=== PATIENT | male | born 1990 | race Caucasian/White ===

== ENCOUNTER 2016-07-17 21:54 | Emergency (ER) | payer OTHER ==
[2016-07-17] MEDS ORDERED: Sodium Chloride 0.9% 1000 ML 1,000 ML IV STA (22:40)
--- NOTE | 2016-07-17 22:43 | ERPHSYRPT ---
- History of Present Illness Time Seen by Provider: 07/17/16 22:30 Source: family Exam Limitations: clinical condition Patient Subjective Stated Complaint: reports with c/o anxiety that is growing more frequent over the last few months - denies any stressors in his life at this time - reports that he was sitting quietly after smoking marijuana and began to feel anxious Triage Nursing Assessment: ambulatory to treatment area - steady gait - moves all extremities with equal strength. alert/oriented - anxious affect. skin pwd - no rash/injury. resps easy - non-labored Physician History: PATIENT COMPAIN ANXIETY AND PRINCIPAL STRATEGIST DEPRESSION. HAS BEEN NONCOMPLIANT WITH MEDICATIONS, REFUSED TO TAKE HIS DIABETIC AND HIGH BLOOD PRESSURS MEDICATION FOR MONTHS. PATIENT ADMITS TO FEEL ANXIOUS, HE DENIES SUICIDAL OR HOMOCIDAL IDEATION. Timing/Duration: week(s) Severity of Symptoms-Max: moderate Severity of Symptoms-Current: moderate Context related to: other (UNKNOWN) Associated Symptoms: anxiety Previous symptoms: same symptoms as today Allergies/Adverse Reactions: No Known Drug Allergies Allergy (Unverified 11/09/13 21:19) Hx Tetanus, Diphtheria Vaccination/Date Given: Yes Hx Influenza Vaccination/Date Given: No Hx Pneumococcal Vaccination/Date Given: No Immunizations Up to Date: Yes - Past Medical History Pertinent Past Medical History: Yes Neurological History: No Pertinent History ENT History: No Pertinent History Cardiac History: No Pertinent History Respiratory History: No Pertinent History Endocrine Medical History: Diabetes Type I Musculoskeletal History: No Pertinent History GI Medical History: No Pertinent History History: No Pertinent History Psycho-Social History: No Pertinent History Male Reproductive Disorders: No Pertinent History Other Medical History: PT HAS BEEN DX WITH DIABETES AND THYROID BUT HAS NOT TAKE MEDS FOR YEARS - Past Surgical History Past Surgical History: Yes Neuro Surgical History: No Pertinent History Cardiac: No Pertinent History Gastrointestinal: No Pertinent History Genitourinary: No Pertinent History Musculoskeletal: Orthopedic Surgery Male Surgical History: No Pertinent History Other Surgical History: hip - ears - Social History Smoking Status: Current every day smoker How long have you smoked: 2008 Exposure to second hand smoke: No Drug Use: marijuana Patient Lives Alone: No - Review of Systems Constitutional: No Fever, No Chills Eyes: No Symptoms Ears, Nose, & Throat: No Symptoms Respiratory: No Symptoms, No Cough, No Dyspnea Cardiac: No Symptoms, No Chest Pain, No Edema, No Syncope Abdominal/Gastrointestinal: No Symptoms, No Abdominal Pain, No Nausea, No Vomiting, No Diarrhea Genitourinary Symptoms: No Symptoms, Penile Discharge, No Dysuria Musculoskeletal: No Back Pain, No Neck Pain Skin: No Symptoms, No Rash Neurological: No Dizziness, No Focal Weakness, No Sensory Changes Psychological: No Symptoms Endocrine: No Symptoms All Other Systems: Reviewed and Negative - Nursing Vital Signs Nursing Vital Signs: Initial Vital Signs Pulse Rate 80 Respiratory Rate 18 Blood Pressure 149/74 Pain Intensity 0 - Physical Exam General Appearance: no apparent distress Eyes, Ears, Nose, Throat Exam: normal ENT inspection, moist mucous membranes Neck Exam: normal inspection, non-tender, supple Respiratory Exam: normal breath sounds, lungs clear, No respiratory distress Cardiovascular Exam: regular rate/rhythm, No edema Gastrointestinal/Abdominal Exam: soft, No tenderness, No distention Extremities Exam: normal inspection, normal range of motion, No evidence of injury, No edema Peripheral Pulses: carotid (R): 2+, carotid (L): 2+, femoral (R): 2+, femoral (L ): 2+, dorsalis-pedis (R): 2+, dorsalis-pedis (L): 2+ Current Suicidality: denies suicide plan Neurological Exam: alert, chemical maker II-XII nml as tested, oriented x 3 Behavior/Eye Contact/Speech: alert & cooperative Thoughts/Hallucinations: normal thought pattern Skin Exam: normal color, warm, dry, No rash SpO2: 100 Oxygen Delivery: Room Air Ordered Tests: Active Orders 24 hr Category Date Time Status ACCUCHECK [Accucheck] STAT Care 07/17/16 22:24 Active Pan Shover STAT Care 07/17/16 22:40 Active EKG-ER Only STAT Care 07/17/16 22:40 Active IV Insertion STAT Care 07/17/16 22:52 Active Psychiatric Evaluation STAT Care 07/18/16 00:15 Active CBC W DIFF Stat Lab 07/17/16 23:00 Completed CMP Stat Lab 07/17/16 23:00 Completed ETHYL ALCOHOL Routine Lab 07/17/16 23:00 Completed UA W/ MICROSCOPIC Stat Lab 07/17/16 23:00 Completed Urine Triage Profile Stat Lab 07/17/16 23:00 Completed Medication Summary Discontinued Medications Generic Name Dose Route Start Last Admin Trade Name Freq PRN Reason Stop Dose Admin Sodium Chloride 1,000 mls @ 999 mls/hr 07/17/16 22:40 07/17/16 22:54 Sodium Chloride 0.9% 1000 Ml IV 07/17/16 23:40 999 mls/hr .Q1H1M STA Administration Sodium Chloride Confirm 07/17/16 22:52 Sodium Chloride 0.9% 1000 Ml Administered 07/17/16 22:53 Dose 1,000 mls @ ud .ROUTE .STK-MED ONE Lab/Rad Data: Laboratory Result Diagrams 07/17/16 23:00 07/17/16 23:00 Laboratory Results 07/17/16 07/17/16 07/17/16 Range/Units 23:00 23:00 23:00 WBC (4.0-10.5) K/mm3 RBC (4.1-5.6) M/mm3 Hgb (12.5-18.0) gm/dl Hct (42-50) % MCV (78-100) fl MCH (26-32) pg MCHC (32-36) g/dl RDW (11.5-14.0) % Plt Count (150-450) K/mm3 MPV (6-9.5) fl Gran % (36.0-66.0) % Lymphocytes % (24.0-44.0) % Monocytes % (0.0-12.0) % Eosinophils % (0.00-5.0) % Basophils % (0.0-0.4) % Basophils # (0-0.4) Sodium 135 L (136-145) mEq/L Potassium 3.8 (3.5-5.1) mEq/L Chloride 97 L (98-107) mEq/L Carbon Dioxide 24.9 (21-32) mEq/L Anion Gap 16.8 H (5-15) MEQ/L BUN 10 (9-20) mg/dL Creatinine 0.82 (0.55-1.30) mg/dl Estimated GFR > 60 ML/MIN Glucose 257 H (70-110) MG/DL Calcium 8.9 (8.5-10.1) mg/dL Total Bilirubin 0.5 (0.2-1.0) mg/dL AST 17 (15-37) U/L ALT 40 (12-78) U/L Alkaline Phosphatase 75 (46-116) U/L Serum Total Protein 7.5 (6.4-8.2) gm/dL Albumin 4.0 (3.4-5.0) g/dL Ur Collection Type Urine Color (YELLOW) Urine Appearance (CLEAR) Urine pH (5-6) Ur Specific [place] (1.005-1.025) Urine Protein (Negative) Urine Glucose (UA) (NEGATIVE) mg/dL Urine Ketones (NEGATIVE) Urine Nitrite (NEGATIVE) Urine Bilirubin (NEGATIVE) Urine Urobilinogen (0-1) mg/dL Urine WBC (Auto) (NEGATIVE) Urine RBC (Auto) (0-5) Stuart/ul Urine Microscopic RBC (0-2) /HPF Urine Microscopic WBC (0-5) /HPF Ur Epithelial Cells (FEW) /HPF Urine Bacteria (NEGATIVE) /HPF Urine Mucus (NEGATIVE) /HPF Urine Opiates Level NEG. (NEGATIVE) Ur Methadone NEG. (NEGATIVE) Urine Barbiturates NEG. (NEGATIVE) Ur Phencyclidine (PCP) NEG. (NEGATIVE) Urine Amphetamine NEG. (NEGATIVE) U Benzodiazepine Level NEG. (NEGATIVE) Urine Cocaine NEG. (NEGATIVE) Urine Marijuana (THC) POS. (NEGATIVE) Ethyl Alcohol (0.00-0.01) % Specimen Received 07/17/16 07/17/16 Range/Units 23:00 23:00 WBC 12.6 H (4.0-10.5) K/mm3 RBC 5.49 (4.1-5.6) M/mm3 Hgb 16.6 (12.5-18.0) gm/dl Hct 47.7 (42-50) % MCV 86.9 (78-100) fl MCH 30.2 (26-32) pg MCHC 34.8 (32-36) g/dl RDW 12.4 (11.5-14.0) % Plt Count 245 (150-450) K/mm3 MPV 10.5 H (6-9.5) fl Gran % 62.9 (36.0-66.0) % Lymphocytes % 29.8 (24.0-44.0) % Monocytes % 5.1 (0.0-12.0) % Eosinophils % 2.0 (0.00-5.0) % Basophils % 0.2 (0.0-0.4) % Basophils # 0.03 (0-0.4) Sodium (136-145) mEq/L Potassium (3.5-5.1) mEq/L Chloride (98-107) mEq/L Carbon Dioxide (21-32) mEq/L Anion Gap (5-15) MEQ/L BUN (9-20) mg/dL Creatinine (0.55-1.30) mg/dl Estimated GFR ML/MIN Glucose (70-110) MG/DL Calcium (8.5-10.1) mg/dL Total Bilirubin (0.2-1.0) mg/dL AST (15-37) U/L ALT (12-78) U/L Alkaline Phosphatase (46-116) U/L Serum Total Protein (6.4-8.2) gm/dL Albumin (3.4-5.0) g/dL Ur Collection Type CLEAN CATCH Urine Color STRAW (YELLOW) Urine Appearance CLEAR (CLEAR) Urine pH 6.0 (5-6) Ur Specific [place] 1.025 (1.005-1.025) Urine Protein 100 (Negative) Urine Glucose (UA) 100 (NEGATIVE) mg/dL Urine Ketones SMALL-15 (NEGATIVE) Urine Nitrite NEGATIVE (NEGATIVE) Urine Bilirubin SMALL (NEGATIVE) Urine Urobilinogen 2 (0-1) mg/dL Urine WBC (Auto) NEGATIVE (NEGATIVE) Urine RBC (Auto) TRACE NON-HEM (0-5) Stuart/ul Urine Microscopic RBC 0-2 (0-2) /HPF Urine Microscopic WBC 0-2 (0-5) /HPF Ur Epithelial Cells MODERATE (FEW) /HPF Urine Bacteria FEW (NEGATIVE) /HPF Urine Mucus MODERATE (NEGATIVE) /HPF Urine Opiates Level (NEGATIVE) Ur Methadone (NEGATIVE) Urine Barbiturates (NEGATIVE) Ur Phencyclidine (PCP) (NEGATIVE) Urine Amphetamine (NEGATIVE) U Benzodiazepine Level (NEGATIVE) Urine Cocaine (NEGATIVE) Urine Marijuana (THC) (NEGATIVE) Ethyl Alcohol (0.00-0.01) % Specimen Received 07/17/16:2300 - Progress Progress Note: [id number] 07/18/16 01:01EDWIN JERRY CONSULTED AT 0100 FOR OUTPATIENT EVALUATION. 07/18/16 01:13 Discussed with DrGonzalez: Wayne Counseled pt/family regarding: diagnosis, need for follow-up - Departure Time of Disposition: 01:10 Departure Disposition: Home Clinical Impression: ANXIETY/DEPRESSION, ANXIETY/DEPRESSION Condition: Stable Critical Care Time: No Additional Instructions: LISINOPRIL 10MG DAILY FOR BLOOD PRESSURE. ATARAX 25MG EVERY 6 HOURS NEEDED FOR ANXIETY. FOLLOWUP WITH TAMMY JERRY AT 8AM TODAY FOR EVALUATION. Prescriptions: Hydroxyzine HCl 25 mg [Atarax 25 mg] 25 mg PO Q6H PRN PRN #15 tablet PRN Reason: Anxiety Lisinopril 10 mg [Zestril 10 MG] 10 mg PO DAILY #30 tablet
[2016-07-17] MEDS ORDERED: Sodium Chloride 0.9% 1000 ML 1,000 ML ONE (22:52)
[2016-07-17 23:08] LABS: BASOPHIL % 0.2 % (0.0-0.4); Granulocytes % 62.9 % (36.0-66.0); Lymphocytes % 29.8 % (24.0-44.0); Mean Cell Volume 86.9 fl (78-100); Mean Corpuscular Hemoglobin 30.2 pg (26-32); Mean Platelet Volume 10.5 fl (6-9.5); Monocytes % 5.1 % (0.0-12.0); Platelet Count 245 K/mm3 (150-450); Red Blood Count 5.49 M/mm3 (4.1-5.6); Red Cell Distribution Width 12.4 % (11.5-14.0); White Blood Count 12.6 K/mm3 (4.0-10.5)
[2016-07-17 23:14] LABS: Bacteria FEW /HPF (NEGATIVE); COMPLETE URINE MICROSCOPIC? YES; Collection Type CLEAN CATCH; Epithelial Cells MODERATE /HPF (FEW); Mucus MODERATE /HPF (NEGATIVE); WBC 0-2 /HPF (0-5)
[2016-07-17 23:26] LABS: ALKALINE PHOSPHATASE 75 U/L (46-116); ANION GAP 16.8 MEQ/L (5-15); BILIRUBIN,TOTAL 0.5 mg/dL (0.2-1.0); BLOOD UREA NITROGEN 10 mg/dL (9-20); CHLORIDE 97 mEq/L (98-107); Carbon Dioxide 24.9 mEq/L (21-32); Glucose 257 MG/DL (70-110); Potassium 3.8 mEq/L (3.5-5.1); SGOT/AST 17 U/L (15-37); SGPT/ALT 40 U/L (12-78); SODIUM 135 mEq/L (136-145); Total Protein 7.5 gm/dL (6.4-8.2)
[2016-07-18 00:16] VITALS: PULSE 80
[2016-07-18 01:00] VITALS: O2SAT 100
[2016-07-18] MEDS ORDERED: ATARAX 25 MG ONE (01:23)
[2016-07-18 01:29] VITALS: BP 149/78
== END 2016-07-18 01:29 | disposition home or self-care (01) ==
LOC: ED 21:54
DX: F41.8 Other specified anxiety disorders (principal)
CPT/HCPCS: 36000; 36415; 80053; 80307; 81000; 82962; 85025; 90791; 93005; 93041; 96360; 96361; 99283; G0481; Q3014

== ENCOUNTER 2016-07-22 14:31 | Inpatient (IN) | payer OTHER ==
[2016-07-22 15:03] LABS: Mean Cell Volume 86.4 fl (78-100); Mean Corpuscular Hemoglobin 30.4 pg (26-32); Mean Platelet Volume 10.1 fl (6-9.5); Platelet Count 302 K/mm3 (150-450); Red Blood Count 6.18 M/mm3 (4.1-5.6); Red Cell Distribution Width 12.9 % (11.5-14.0); White Blood Count 16.5 K/mm3 (4.0-10.5)
--- NOTE | 2016-07-22 15:05 | ERPHSYRPT ---
- History of Present Illness Source: patient Exam Limitations: no limitations Patient Subjective Stated Complaint: pt sent over by dr shelley for depression and suicidal thoughts,seen on friday for depression and was given rx, has been taking meds, Triage Nursing Assessment: pt is alert and in no distress, pt has a plan to harm self, stab self car wreck, pt denies any new stress, has been hospitalized for same thing in past Timing/Duration: day(s) (2-3 days) Severity: moderate Modifying Factors: Improves With: nothing Associated Symptoms: nausea (patient becomes nauseous when he is has not been taking his meds), vomiting (pat), No abdominal pain, No shortness of breath, No heartburn, No diaphoresis, No cough, No chills, No chest pain, No fever, No headaches, No loss of appetite, No malaise, No rash, No syncope, No seizure, No weakness Hx Tetanus, Diphtheria Vaccination/Date Given: No Hx Influenza Vaccination/Date Given: No Hx Pneumococcal Vaccination/Date Given: No Immunizations Up to Date: Yes <MANNY NELSON - Last Filed: 07/22/16 19:05> <CHAPARRITA VELASCO - Last Filed: 07/22/16 20:09> - History of Present Illness Time Seen by Provider: 07/22/16 14:53 Physician History: This is a 25-year-old white male with history of high blood pressure depression diabetes he arrives with complaint of suicidal ideation for 2-3 days he states that he has no obvious reasons for his depression he apparently had been seen a week ago for similar thoughts he states he was placed on a blood pressure medicine of some type of depression medicine and a pill for his diabetes he states that he has tried to be compliant but when he gets anxious she gets nauseous and vomits and can take his pills He states he has been not otherwise ill He does state that he has multiple ways which she could harm himself that he could stent stabbed himself or become involved in a automobile accident. Patient does have a history of overdose in the past in 2010 Past medical history includes diabetes depression high blood pressure Social history includes tobacco use and marijuana use (MANNY NELSON) Allergies/Adverse Reactions: No Known Drug Allergies Allergy (Verified 07/22/16 14:41) - Review of Systems Constitutional: No Fever, No Chills Eyes: No Symptoms Ears, Nose, & Throat: No Symptoms Respiratory: No Cough, No Dyspnea Cardiac: No Chest Pain, No Edema, No Syncope Abdominal/Gastrointestinal: Nausea (nausea and vomiting with anxiety), Vomiting , No Abdominal Pain, No Diarrhea, No Constipation, No Hematemesis, No Hematochezia, No Melena, No Dysphagia, No Appetite Changes Genitourinary Symptoms: No Dysuria Musculoskeletal: No Back Pain, No Neck Pain Skin: No Rash Neurological: No Dizziness, No Focal Weakness, No Sensory Changes Psychological: Drug Abuse (patient uses marijuana occasionally), Depression, Suicidal Ideations, No Alcohol Abuse, No Anxiety, No Homicidal Ideations, No Emotional Lability, No Hallucinations, No Memory Loss, No Mood Changes Endocrine: No Symptoms All Other Systems: Reviewed and Negative <MANNY NELSON - Last Filed: 07/22/16 19:05> - Past Medical History Pertinent Past Medical History: Yes Neurological History: No Pertinent History ENT History: No Pertinent History Cardiac History: Hypertension Respiratory History: No Pertinent History Endocrine Medical History: Diabetes Type II Musculoskeletal History: No Pertinent History GI Medical History: No Pertinent History History: No Pertinent History Psycho-Social History: Depression Male Reproductive Disorders: No Pertinent History Other Medical History: PT HAS BEEN DX WITH DIABETES AND THYROID BUT HAS NOT TAKE MEDS FOR YEARS - Past Surgical History Past Surgical History: Yes Neuro Surgical History: No Pertinent History Cardiac: No Pertinent History Gastrointestinal: No Pertinent History Genitourinary: No Pertinent History Musculoskeletal: Orthopedic Surgery Male Surgical History: No Pertinent History Other Surgical History: hip right - Social History Smoking Status: Current some day smoker How long have you smoked: 2008 Exposure to second hand smoke: Yes Drug Use: marijuana Patient Lives Alone: No (mother) <MANNY NELSON - Last Filed: 07/22/16 19:05> - Physical Exam General Appearance: other (well-developed well-nourished white male, flat affect , pleasant and cooperative to exami) Eye Exam: PERRL/EOMI, eyes nml inspection Ears, Nose, Throat Exam: normal ENT inspection, TMs normal, pharynx normal, moist mucous membranes Neck Exam: normal inspection, non-tender, supple, full range of motion Respiratory Exam: normal breath sounds, lungs clear, No respiratory distress Cardiovascular Exam: normal heart sounds, normal peripheral pulses, tachycardia , No murmur Gastrointestinal/Abdomen Exam: soft, normal bowel sounds, No tenderness, No mass Back Exam: normal inspection, normal range of motion, No CVA tenderness, No vertebral tenderness Extremity Exam: normal inspection, normal range of motion, pelvis stable Neurologic Exam: alert, oriented x 3, cooperative, normal mood/affect, nml cerebellar function, nml station & gait, sensation nml, No motor deficits Skin Exam: normal color, warm, dry, No rash Lymphatic Exam: No adenopathy SpO2 Interpretation: normal (97%) SpO2: 97 Oxygen Delivery: Room Air <MANNY NELSON - Last Filed: 07/22/16 19:05> - Course Nursing assessment & vital signs reviewed: Yes EKG Interpreted by Me: RATE (113 bpm), Sinus Tach, NORMAL AXIS, Other (EKG, sinus tachycardia 113 bpm, normal axis, no acute ST or T wave changes ) <MANNY NELSON - Last Filed: 07/22/16 19:05> - Progress Progress: improved <MANNY NELSON - Last Filed: 07/22/16 19:05> - Progress Discussed with : Artemio (OBS - ICU (~ 1999).) <CHAPARRITA VELASCO - Last Filed: 07/22/16 20:09> - Progress Progress Note: 07/22/16 19:03 Patient did have ketones in his urine and increased hemoglobin and hematocrit. Case is discussed with Dr. Shelley patient is stable. Patient was given 2 L of normal saline IV and placed on normal saline 100 mL per hour. Telepsyche has been ordered and is pending. Case will be turned over to Dr. Velasco as it is shift change (MANNY NELSON) 07/22/16 20:[address] VELASCO 1945: PERRL, EOMI, CERUMEN OCCLUSION OF RIGHT EAR, LEFT TM INJECTED, PHARYNX ERYTHEMATOUS, DRY m.m., LUNGS CLEAR, NO CARDIAC RUB, ABDOMINAL B.S. NORMAL, NO ANKLE EDEMA, ALERT & COOPERATIVE, NO TREMORS. (CHAPARRITA VELASCO) - Departure Critical Care Time: No <MANNY NELSON - Last Filed: 07/22/16 19:05> - Departure Time of Disposition: 20:09 Departure Disposition: Observation Critical Care Time: No <CHAPARRITA VELASCO - Last Filed: 07/22/16 20:09> - Departure Clinical Impression: Suicidal ideation, Dehydration, LOM, PHARYNGITIS, HTN, DM, DEPRESSION Condition: Fair Referrals: GHAZALA SHELLEY MD [Primary Care Provider] -
[2016-07-22] MEDS ORDERED: Sodium Chloride 0.9% 1000 ML 1,000 ML IV STA ×3 (15:10→20:11)
[2016-07-22] MEDS ORDERED: Sodium Chloride 0.9% 1000 ML 1,000 ML ONE ×4 (15:11→20:23)
[2016-07-22 15:39] LABS: Bacteria FEW /HPF (NEGATIVE); COMPLETE URINE MICROSCOPIC? YES; Collection Type VOID; Epithelial Cells RARE /HPF (FEW); WBC 0-2 /HPF (0-5)
[2016-07-22 15:43] LABS: ALBUMIN 4.6 g/dL (3.4-5.0); ALKALINE PHOSPHATASE 94 U/L (46-116); ANION GAP 28.2 MEQ/L (5-15); BILIRUBIN,TOTAL 0.8 mg/dL (0.2-1.0); BLOOD UREA NITROGEN 14 mg/dL (9-20); CHLORIDE 94 mEq/L (98-107); Glucose 145 MG/DL (70-110); Potassium 4.3 mEq/L (3.5-5.1); SGOT/AST 24 U/L (15-37); SGPT/ALT 36 U/L (12-78); SODIUM 131 mEq/L (136-145); Total Protein 9.1 gm/dL (6.4-8.2)
[2016-07-22 15:56] LABS: Carbon Dioxide 13.8 mEq/L (21-32)
[2016-07-22 15:57] LABS: ACETAMINOPHEN < 2.0 ug/ml (10-30)
[2016-07-22 16:02] LABS: Eosinophil 2 % (0.00-3.0); Platelet Estimate NORMAL (NORMAL); Total Cells Counted 100
[2016-07-22] MEDS ORDERED: Sodium Chloride 0.9% 1000 ML 1,000 ML IV SCH (17:15)
[2016-07-22] MEDS ORDERED: Zithromax 250 MG TABLET PO ONE (19:51)
[2016-07-22] MEDS ORDERED: Zithromax 250 MG TABLET ONE (19:59)
[2016-07-22] MEDS ORDERED: Phenergan 25 MG INJ IV PRN (21:03)
[2016-07-22] MEDS ORDERED: NovoLOG Insulin SQ PRN (21:03)
[2016-07-22] MEDS: Sodium Chloride 0.9% 1000 ML 1,000 ML IV SCH (21:05)
[2016-07-22] MEDS ORDERED: MAALOX ES 30 ML UNIT DOSE PO PRN (22:11)
[2016-07-22] MEDS ORDERED: Ambien 10 MG ONE (22:13)
[2016-07-22] MEDS ORDERED: Ambien 10 MG PO PRN (22:17)
[2016-07-23 05:25] VITALS: BP 147/89; PULSE 73; O2SAT 96
[2016-07-23 06:02] LABS: ALBUMIN 3.6 g/dL (3.4-5.0); ALKALINE PHOSPHATASE 77 U/L (46-116); ANION GAP 14.6 MEQ/L (5-15); BILIRUBIN,TOTAL 0.5 mg/dL (0.2-1.0); BLOOD UREA NITROGEN 17 mg/dL (9-20); CHLORIDE 103 mEq/L (98-107); Carbon Dioxide 23.6 mEq/L (21-32); Glucose 122 MG/DL (70-110); Potassium 4.3 mEq/L (3.5-5.1); SGOT/AST 18 U/L (15-37); SGPT/ALT 28 U/L (12-78); SODIUM 137 mEq/L (136-145); Total Protein 7.2 gm/dL (6.4-8.2)
[2016-07-23] MEDS: Sodium Chloride 0.9% 1000 ML 1,000 ML IV SCH (06:19)
--- NOTE | 2016-07-23 08:04 | PCM.SSS ---
History of Present Illness - Chief Complaint Chief Complaint: Suicidial Ideation, Dehydration History of Present Illness: is a 25 year old male who presented to the ER yesterday evening, of note his chief complaint and history relayed to me is quite different than the reports I received from both ER physicians yesterday. He had nausea, vomiting and diarrhea that began 2 days prior to arrival, had eaten and drank very little over the weekend. He has had suicidal ideation at times over the last 2 months with no specific plans, he feels safe with himself at home at this time. He has an appointment at [facility] for depression, was started on lexapro in the office less than a week ago by me. He gets anxious and vomits, has had very little sleep in the last weeks, self-medicates with marijuana to calm his nerves. - Review of Systems Constitutional: No Fever, No Chills Respiratory: No Cough, No Short Of Breath Cardiac: No Chest Pain, No Edema, No Syncope Abdominal/Gastrointestinal: Nausea, Vomiting, Diarrhea Genitourinary Symptoms: No Dysuria Psychological: Drug Abuse, Depression, Suicidal Ideations, No Alcohol Abuse, No Homicidal Ideations All Other Systems: Reviewed and Negative Medications & Allergies Home Medications: Home Medication List Azithromycin 250 mg [Zithromax 250 MG TABLET] 250 mg PO DAILY #4 tablet [Rx] Canagliflozin/Metformin HCl [Invokamet 150-500 mg Tablet] 1 each PO BID [History Confirmed 07/23/16] Escitalopram Oxalate [Lexapro] 10 mg PO DAILY 07/23/16 [History Confirmed ] Lisinopril 10 mg [Zestril 10 MG] 10 mg PO DAILY 07/23/16 [History Confirmed 07/23/16] Allergies/Adverse Reactions: Allergies Allergy/AdvReac Type Severity Reaction Status Date / Time No Known Drug Allergies Allergy Verified 07/22/16 14:41 - Past Medical History Past Medical History: Yes Neurological History: No Pertinent History ENT History: No Pertinent History Cardiac History: Hypertension Respiratory History: Pneumonia Endocrine Medical History: Diabetes Type II Musculoskelatal History: No Pertinent History GI Medical History: No Pertinent History History: No Pertinent History Pyscho-Social History: Anxiety, Depression Male Reproductive Disorders: No Pertinent History Comment: PT HAS BEEN DX WITH DIABETES AND THYROID BUT HAS NOT TAKE MEDS FOR YEARS - Past Surgical History Past Surgical History: Yes Neuro Surgical History: No Pertinent History Cardiac History: No Pertinent History GI Surgical History: No Pertinent History Genitourinary Surgical Hx: No Pertinent History Musculskeletal Surgical Hx: Orthopedic Surgery Male Surgical History: No Pertinent History Other Surgical History: hip right - bone slip- pin placed. tubes placed in ears years ago, now out - Social History Smoking Status: Current every day smoker How long have you smoked: 7 Exposure to second hand smoke: Yes Alcohol: None Drug Use: marijuana - Physical Exam Vital Signs: Vital Signs - 24 hr Temp Pulse Resp BP BP Pulse Ox 07/23/16 05:20 97.4 F 73 16 147/89 96 07/22/16 23:50 97.6 F 100 H 20 157/82 97 07/22/16 21:07 97.3 F 75 18 167/87 98 07/22/16 20:29 84 18 156/71 98 07/22/16 20:06 80 18 138/68 98 07/22/16 19:05 97 07/22/16 17:06 76 18 141/75 07/22/16 15:52 80 16 133/80 97 07/22/16 15:25 98 H 18 132/84 07/22/16 15:20 91 H 16 134/71 07/22/16 14:39 97.4 F 122 H 18 165/110 97 General Appearance: no apparent distress, alert Neck Exam: normal inspection, non-tender, supple, full range of motion Respiratory Exam: normal breath sounds, lungs clear, No respiratory distress Cardiovascular Exam: regular rate/rhythm, normal heart sounds, normal peripheral pulses Gastrointestinal/Abdomen Exam: soft, normal bowel sounds, No tenderness, No mass Extremity Exam: normal inspection, normal range of motion, pelvis stable Results - Labs Lab/Micro Results: Accuchecks Date 07/23/16 Date 07/22/16 Time 22:08 Accucheck Value: 197 Lab Results-Last 24 Hours 07/23/16 07/23/16 07/23/16 Range/Units 05:00 05:36 05:36 Sodium 137 (136-145) mEq/L Potassium 4.3 (3.5-5.1) mEq/L Chloride 103 (98-107) mEq/L Carbon Dioxide 23.6 (21-32) mEq/L Anion Gap 14.6 (5-15) MEQ/L BUN 17 (9-20) mg/dL Creatinine 0.95 (0.55-1.30) mg/dl Estimated GFR > 60 ML/MIN Glucose 122 H (70-110) MG/DL Hemoglobin A1c 10.0 H (4.5-6.2) Calcium 8.2 L (8.5-10.1) mg/dL Total Bilirubin 0.5 (0.2-1.0) mg/dL AST 18 (15-37) U/L ALT 28 (12-78) U/L Alkaline Phosphatase 77 (46-116) U/L Serum Total Protein 7.2 (6.4-8.2) gm/dL Albumin 3.6 (3.4-5.0) g/dL Thyroxine (T4) 6.8 (4.7-13.3) UG/DL TSH 3rd Generation 3.624 (0.358-3.740) mIU/L Accuchecks Date 07/23/16 Date 07/22/16 Time 22:08 Accucheck Value: 197 Assessment/Plan (1) Viral gastroenteritis Current Visit: Yes Status: Acute Assessment & Plan: appears to be resolved, bicarb is normal today. he is no longer vomiting nor having diarrhea Code(s): A08.4 - VIRAL INTESTINAL INFECTION, UNSPECIFIED (2) Dehydration Current Visit: Yes Status: Acute Assessment & Plan: volume has been replaced Code(s): E86.0 - DEHYDRATION (3) Suicidal ideation Current Visit: Yes Status: Acute Assessment & Plan: currently has no suicidal thoughts, has a longstanding history of depression but is noncompliant with meds for diabetes in the past and was lost to followup. He reassures me that he is safe and has no intent to harm himself, wants to f/u with [facility] today and seems to pose no immediate threat to himself or others in my opinion so I do not feel ED is warranted and he refused transfer to inpatient psych unit last night from ER. Code(s): R45.851 - SUICIDAL IDEATIONS (4) Insomnia Current Visit: Yes Status: Acute Code(s): G47.00 - INSOMNIA, UNSPECIFIED Hospital Summary - Vitals & Intake/Output Vital Signs: Vital Signs Temperature 97.4 F 07/23/16 05:20 Pulse Rate 73 07/23/16 05:20 Respiratory Rate 16 07/23/16 05:20 Blood Pressure 147/89 07/23/16 05:20 O2 Sat by Pulse Oximetry 96 07/23/16 05:20 Intake & Output: Intake & Output 07/20/16 07/21/16 07/22/16 07/23/16 11:59 11:59 11:59 11:59 Intake Total 3170 Balance 3170 Weight 119.437 kg - Lab Result Diagrams: 07/22/16 15:01 07/23/16 05:36 Lab Results-Last 24 Hrs: Accuchecks Date 07/23/16 Date 07/22/16 Time 22:08 Accucheck Value: 197 Lab Results-Last 24 Hours 07/23/16 07/23/16 07/23/16 Range/Units 05:00 05:36 05:36 Sodium 137 (136-145) mEq/L Potassium 4.3 (3.5-5.1) mEq/L Chloride 103 (98-107) mEq/L Carbon Dioxide 23.6 (21-32) mEq/L Anion Gap 14.6 (5-15) MEQ/L BUN 17 (9-20) mg/dL Creatinine 0.95 (0.55-1.30) mg/dl Estimated GFR > 60 ML/MIN Glucose 122 H (70-110) MG/DL Hemoglobin A1c 10.0 H (4.5-6.2) Calcium 8.2 L (8.5-10.1) mg/dL Total Bilirubin 0.5 (0.2-1.0) mg/dL AST 18 (15-37) U/L ALT 28 (12-78) U/L Alkaline Phosphatase 77 (46-116) U/L Serum Total Protein 7.2 (6.4-8.2) gm/dL Albumin 3.6 (3.4-5.0) g/dL Thyroxine (T4) 6.8 (4.7-13.3) UG/DL TSH 3rd Generation 3.624 (0.358-3.740) mIU/L Micro Results-Entire Visit: Accuchecks Date 07/23/1607/22/16 Time 22:08 Accucheck Value: 197 - Procedures and Test Procedures and Tests throughout Hospitalization: Therapy Orders & Screens 07/23/16 02:47 Smoking Cessation Education ONCE Comment: Diagnosis: Suicidial Ideation, Dehydration Smoking Status: Current every day smoker How long have you smoked: 7 Have you smoked in the past 12 months: Yes Approximately how many cigarettes per day: 1 pack Do you dip or chew tobacco: No - Discharge Disposition: Home, Self-Care Condition: Stable Prescriptions: Azithromycin 250 mg [Zithromax 250 MG TABLET] 250 mg PO DAILY #4 tablet Medications: Home Medications Canagliflozin/Metformin HCl [Invokamet 150-500 mg Tablet] 1 each PO BID [Confirmed 07/23/16] Escitalopram Oxalate [Lexapro] 10 mg PO DAILY 07/23/16 [Confirmed 07/23/16] Lisinopril 10 mg [Zestril 10 MG] 10 mg PO DAILY 07/23/16 [Confirmed ] Active Inpatient Medications Al Hydrox/Mg Hydrox/Simethicone (Maalox Es 30 Ml Unit Dose) 30 ml PO Q2H PRN PRN PRN Reason: INDIGESTION Stop: 08/21/16 22:10 Azithromycin (Zithromax 250 Mg Tablet) 250 mg PO DAILY ZEB Stop: 08/22/16 09:59 Sodium Chloride (Sodium Chloride 0.9% 1000 Ml) 1,000 mls @ 100 mls/hr IV .Q10H ZEB Stop: 08/21/16 21:02 Last Admin: 07/22/16 21:05 Dose: Not Given Insulin Aspart (Novolog Insulin) 0 unit SQ UD PRN PRN Reason: HYPERGLYCEMIA Stop: 08/21/16 21:02 Promethazine HCl (Phenergan 25 Mg Inj) 12.5 mg IV Q2H PRN PRN PRN Reason: NAUSEA/VOMITING Stop: 08/21/16 21:02 Last Admin: 07/23/16 00:55 Dose: 12.5 mg Zolpidem Tartrate (Ambien 10 Mg) 10 mg PO HS PRN PRN PRN Reason: INSOMNIA Stop: 08/21/16 22:16 Last Admin: 07/22/16 22:22 Dose: 10 mg Additional Instructions: f/u with Frank today as scheduled, see Dr Luna in 1 week and we can discuss a script for insomnia (want to get Frank recommendation first today). resume home meds and take zithromax x 4 more days Follow up with: GHAZALA LUNA MD [Primary Care Provider] -
[2016-07-23] MEDS ORDERED: Zithromax 250 MG TABLET PO SCH (10:00)
== END 2016-07-23 08:20 | disposition home or self-care (01) | DRG 392 ==
LOC: ED 14:31 → ICU 20:56
PROVIDERS: ADMIT Family Medicine; ATTEND Family Medicine
DX: A08.4 Viral intestinal infection, unspecified (principal); R45.851 Suicidal ideations; E86.0 Dehydration; G47.00 Insomnia, unspecified; I10 Essential (primary) hypertension; E11.9 Type 2 diabetes mellitus without complications; E07.9 Disorder of thyroid, unspecified; F32.9 Major depressive disorder, single episode, unspecified; F12.980 Cannabis use, unspecified with anxiety disorder; Z72.0 Tobacco use
CPT/HCPCS: 36000; 36415; 80053; 80307; 80320; 81000; 82962; 83036; 83986; 84436; 84443; 85025; 90791; 93005; 93041; 96360; 96361; 99284; G0479; G0481; J2550; Q3014

== ENCOUNTER 2017-03-11 11:17 | Inpatient (IN) | payer OTHER ==
[2017-03-11] MEDS ORDERED: Zofran 4 MG/2 ML VIAL IV ONE (11:35)
[2017-03-11] MEDS ORDERED: MORPHINE SULFATE 10 MG/ML IV ONE (11:35)
[2017-03-11] MEDS ORDERED: Vancomycin 1GM/ Ns 250ML*** 1 GM/250 ML IVPB IV ONE (11:37)
[2017-03-11] MEDS ORDERED: Sodium Chloride 0.9% 1000 ML 1,000 ML IV SCH (11:45)
--- NOTE | 2017-03-11 11:46 | ERPHSYRPT ---
- History of Present Illness Time Seen by Provider: 03/11/17 11:37 Source: patient Exam Limitations: no limitations Patient Subjective Stated Complaint: PT REPORTS ABSESS TO INNER LEFT THIGH- DENIES DRAINAGE-UNSURE OF FEVER Triage Nursing Assessment: PT PINK WARM ET DRY-LARGE AMOUNT OF SWELLING REDNESS NOTED TO GROIN/UPPER THIGH OF LEFT LEG Physician History: 26 year old male reports to the emergency department complaining of painful, swollen and red area to left upper/medial thigh region. Very painful, has felt feverish, pain and swelling have worsened over the last week. has not had any drainage from the area, no difficulty with urination or with bowel movements. Allergies/Adverse Reactions: No Known Drug Allergies Allergy (Verified 03/11/17 11:23) Home Medications: No Reportable Medications [No Reported Medications] 03/11/17 [History] Hx Tetanus, Diphtheria Vaccination/Date Given: No Hx Influenza Vaccination/Date Given: No Hx Pneumococcal Vaccination/Date Given: No Immunizations Up to Date: Yes - Review of Systems Constitutional: Fever, Chills Respiratory: No Cough, No Dyspnea Cardiac: No Chest Pain, No Edema, No Syncope Abdominal/Gastrointestinal: No Abdominal Pain, No Nausea, No Vomiting, No Diarrhea Skin: Cellulitis, Induration Neurological: No Dizziness, No Focal Weakness, No Sensory Changes All Other Systems: Reviewed and Negative - Past Medical History Pertinent Past Medical History: No Neurological History: No Pertinent History ENT History: No Pertinent History Cardiac History: Hypertension Respiratory History: Pneumonia Endocrine Medical History: Diabetes Type II Musculoskeletal History: No Pertinent History GI Medical History: No Pertinent History History: No Pertinent History Psycho-Social History: Anxiety, Depression Male Reproductive Disorders: No Pertinent History Other Medical History: PT HAS BEEN DX WITH DIABETES AND THYROID BUT HAS NOT TAKE MEDS FOR YEARS - Past Surgical History Past Surgical History: Yes Neuro Surgical History: No Pertinent History Cardiac: No Pertinent History Gastrointestinal: No Pertinent History Genitourinary: No Pertinent History Musculoskeletal: Orthopedic Surgery Male Surgical History: No Pertinent History Other Surgical History: hip right - bone slip- pin placed. tubes placed in ears years ago, now out - Social History Smoking Status: Current every day smoker How long have you smoked: YRS Exposure to second hand smoke: Yes Drug Use: none Patient Lives Alone: No - Nursing Vital Signs Nursing Vital Signs: Initial Vital Signs Temperature 99.1 F 03/11/17 11:20 Pulse Rate 110 H 03/11/17 11:20 Respiratory Rate 20 03/11/17 11:20 Blood Pressure 145/85 03/11/17 11:20 O2 Sat by Pulse Oximetry 96 03/11/17 11:20 Pain Scale Pain Intensity 10 - Physical Exam General Appearance: no apparent distress, alert Eye Exam: PERRL/EOMI, eyes nml inspection Ears, Nose, Throat Exam: normal ENT inspection, pharynx normal, moist mucous membranes Neck Exam: normal inspection, non-tender, supple, full range of motion Respiratory Exam: normal breath sounds, lungs clear, No respiratory distress Cardiovascular Exam: regular rate/rhythm, normal heart sounds Gastrointestinal/Abdomen Exam: soft, mass, No tenderness Extremity Exam: other (large 8cm area of induration with mild central fluctuance to left medial upper thigh with induration extending to left buttock , surrounding warmth and erythema) Neurologic Exam: alert, oriented x 3, cooperative, normal mood/affect, sensation nml, No motor deficits SpO2: 96 Oxygen Delivery: Room Air Ordered Tests: Active Orders 24 hr Category Date Time Status IV Insertion STAT Care 03/11/17 11:35 Active BLOOD CULTURE Stat Lab 03/11/17 11:48 Ordered CBC W DIFF Stat Lab 03/11/17 11:48 Completed CMP Stat Lab 03/11/17 11:48 Completed Lactic Acid Stat Lab 03/11/17 11:55 Completed Medication Summary Generic Name Dose Route Start Last Admin Trade Name Freq PRN Reason Stop Dose Admin Sodium Chloride 1,000 mls @ 100 mls/hr 03/11/17 11:45 03/11/17 12:17 Sodium Chloride 0.9% 1000 Ml IV 04/10/17 11:44 100 mls/hr .Q10H ZEB Administration Vancomycin HCl 1 gm in 250 mls @ 167 mls/hr 03/11/17 11:37 03/11/17 12:21 Vancomycin 1gm/ Ns 250ml IV 03/11/17 13:06 167 mls/hr STAT ONE Administration Discontinued Medications Generic Name Dose Route Start Last Admin Trade Name Freq PRN Reason Stop Dose Admin Vancomycin HCl Confirm 03/11/17 12:00 Vancomycin 1gm/ Ns 250ml Administered 03/11/17 12:01 Dose 250 mls @ ud IV .STK-MED ONE Morphine Sulfate 6 mg 03/11/17 11:35 03/11/17 12:21 Morphine Sulfate 10 Mg/Ml IV 03/11/17 11:36 6 mg STAT ONE Administration Morphine Sulfate Confirm 03/11/17 11:58 Morphine Sulfate 10 Mg/Ml Administered 03/11/17 11:59 Dose 10 mg .ROUTE .STK-MED ONE Ondansetron HCl 4 mg 03/11/17 11:35 03/11/17 12:16 Zofran 4 Mg/2 Ml Vial IV 03/11/17 11:36 4 mg STAT ONE Administration Ondansetron HCl Confirm 03/11/17 11:59 Zofran 4 Mg/2 Ml Vial Administered 03/11/17 12:00 Dose 4 mg .ROUTE .STK-MED ONE Lab/Rad Data: Laboratory Result Diagrams 03/11/17 11:48 03/11/17 11:48 Laboratory Results 03/11/17 03/11/17 03/11/17 Range/Units Unknown 11:55 11:48 WBC (4.0-10.5) K/mm3 RBC (4.1-5.6) M/mm3 Hgb (12.5-18.0) gm/dl Hct (42-50) % MCV (78-100) fl MCH (26-32) pg MCHC (32-36) g/dl RDW (11.5-14.0) % Plt Count (150-450) K/mm3 MPV (6-9.5) fl Gran % (36.0-66.0) % Lymphocytes % (24.0-44.0) % Monocytes % (0.0-12.0) % Eosinophils % (0.00-5.0) % Basophils % (0.0-0.4) % Basophils # (0-0.4) Sodium 130 L (136-145) mEq/L Potassium 4.4 (3.5-5.1) mEq/L Chloride 95 L (98-107) mEq/L Carbon Dioxide 22.5 (21-32) mEq/L Anion Gap 17.1 H (5-15) MEQ/L BUN 8 L (9-20) mg/dL Creatinine 0.90 (0.55-1.30) mg/dl Estimated GFR > 60 ML/MIN Glucose 332 H (70-110) MG/DL Hemoglobin A1c 4.9 (4.5-6.2) Lactic Acid 1.4 (0.4-2.0) Calcium 9.0 (8.5-10.1) mg/dL Total Bilirubin 1.00 (0.2-1.0) mg/dL AST 12 L (15-37) U/L ALT 19 (12-78) U/L Alkaline Phosphatase 78 (46-116) U/L Serum Total Protein 7.6 (6.4-8.2) gm/dL Albumin 3.2 L (3.4-5.0) g/dL 03/11/17 Range/Units 11:48 WBC 15.8 H (4.0-10.5) K/mm3 RBC 4.89 (4.1-5.6) M/mm3 Hgb 15.2 (12.5-18.0) gm/dl Hct 43.3 (42-50) % MCV 88.5 (78-100) fl MCH 31.1 (26-32) pg MCHC 35.1 (32-36) g/dl RDW 12.0 (11.5-14.0) % Plt Count 193 (150-450) K/mm3 MPV 10.4 H (6-9.5) fl Gran % 81.4 H (36.0-66.0) % Lymphocytes % 8.8 L (24.0-44.0) % Monocytes % 9.3 (0.0-12.0) % Eosinophils % 0.4 (0.00-5.0) % Basophils % 0.1 (0.0-0.4) % Basophils # 0.02 (0-0.4) Sodium (136-145) mEq/L Potassium (3.5-5.1) mEq/L Chloride (98-107) mEq/L Carbon Dioxide (21-32) mEq/L Anion Gap (5-15) MEQ/L BUN (9-20) mg/dL Creatinine (0.55-1.30) mg/dl Estimated GFR ML/MIN Glucose (70-110) MG/DL Hemoglobin A1c (4.5-6.2) Lactic Acid (0.4-2.0) Calcium (8.5-10.1) mg/dL Total Bilirubin (0.2-1.0) mg/dL AST (15-37) U/L ALT (12-78) U/L Alkaline Phosphatase (46-116) U/L Serum Total Protein (6.4-8.2) gm/dL Albumin (3.4-5.0) g/dL - Progress Progress Note: 03/11/17 12:58 patient rechecked and improved, will admit for IV abx and surgery consult. will keep NPO. spoke with office and consult will be relayed to Dr Cunningham who is weatherization field technician at this time for surgery. - Departure Time of Disposition: 12:59 Departure Disposition: Observation Clinical Impression: Abscess of left thigh, Cellulitis of buttock, left Condition: Stable Critical Care Time: No Referrals: GHAZALA LNUA MD [Primary Care Provider] -
[2017-03-11 11:53] LABS: BASOPHIL % 0.1 % (0.0-0.4); Eosinophil % 0.4 % (0.00-5.0); Granulocytes % 81.4 % (36.0-66.0); Lymphocytes % 8.8 % (24.0-44.0); Mean Cell Volume 88.5 fl (78-100); Mean Corpuscular Hemoglobin 31.1 pg (26-32); Mean Platelet Volume 10.4 fl (6-9.5); Monocytes % 9.3 % (0.0-12.0); Platelet Count 193 K/mm3 (150-450); Red Blood Count 4.89 M/mm3 (4.1-5.6); White Blood Count 15.8 K/mm3 (4.0-10.5)
[2017-03-11] MEDS ORDERED: MORPHINE SULFATE 10 MG/ML ONE (11:58)
[2017-03-11] MEDS ORDERED: Zofran 4 MG/2 ML VIAL ONE (11:59)
[2017-03-11] MEDS ORDERED: Vancomycin 1GM/ Ns 250ML*** 250 ML IV ONE (12:00)
[2017-03-11 12:22] LABS: ALBUMIN 3.2 g/dL (3.4-5.0); ALKALINE PHOSPHATASE 78 U/L (46-116); ANION GAP 17.1 MEQ/L (5-15); BLOOD UREA NITROGEN 8 mg/dL (9-20); CHLORIDE 95 mEq/L (98-107); Carbon Dioxide 22.5 mEq/L (21-32); Glucose 332 MG/DL (70-110); Potassium 4.4 mEq/L (3.5-5.1); SGOT/AST 12 U/L (15-37); SGPT/ALT 19 U/L (12-78); SODIUM 130 mEq/L (136-145); Total Protein 7.6 gm/dL (6.4-8.2)
[2017-03-11] MEDS ORDERED: MORPHINE SULFATE 4 MG INJ IV PRN (13:55)
[2017-03-11] MEDS ORDERED: PHARMACY DOSING REQUIRED: VANCOMYCIN IV ONE (13:55)
[2017-03-11] MEDS ORDERED: Zofran 4 MG/2 ML VIAL IV PRN (13:55)
--- NOTE | 2017-03-11 15:10 | PCM.HP ---
History of Present Illness - Chief Complaint Chief Complaint: ABSCESS L UPPER GROIN History of Present Illness: is a 26 year old male who presented to the ER today with complaints of a large red, painful area to left medial upper thigh. He has had subjective fever for the last day or two, has increased in size and become more painful. He has a history of type 2 diabetes and depression. - Review of Systems Constitutional: Fever, Chills Ears, Nose, & Throat: No Symptoms Respiratory: No Cough, No Short Of Breath Cardiac: No Chest Pain, No Edema, No Syncope Abdominal/Gastrointestinal: No Abdominal Pain, No Nausea, No Vomiting, No Diarrhea Skin: Cellulitis, Induration Neurological: No Dizziness, No Focal Weakness, No Sensory Changes Psychological: No Symptoms All Other Systems: Reviewed and Negative Medications & Allergies Home Medications: Home Medication List No Reportable Medications [No Reported Medications] 03/11/17 [History Confirmed 03/11/17] Allergies/Adverse Reactions: Allergies Allergy/AdvReac Type Severity Reaction Status Date / Time No Known Drug Allergies Allergy Verified 03/11/17 11:23 - Past Medical History Past Medical History: No Neurological History: No Pertinent History ENT History: No Pertinent History Cardiac History: Hypertension Respiratory History: Pneumonia Endocrine Medical History: Diabetes Type II Musculoskelatal History: No Pertinent History GI Medical History: No Pertinent History History: No Pertinent History Pyscho-Social History: Anxiety, Depression Male Reproductive Disorders: No Pertinent History Comment: PT HAS BEEN DX WITH DIABETES AND THYROID BUT HAS NOT TAKE MEDS FOR YEARS - Past Surgical History Past Surgical History: Yes Neuro Surgical History: No Pertinent History Cardiac History: No Pertinent History GI Surgical History: No Pertinent History Genitourinary Surgical Hx: No Pertinent History Musculskeletal Surgical Hx: Orthopedic Surgery Male Surgical History: No Pertinent History Other Surgical History: hip right - bone slip- pin placed. tubes placed in ears years ago, now out - Social History Smoking Status: Current every day smoker How long have you smoked: 8 YEARS Exposure to second hand smoke: Yes Alcohol: Rarely Drug Use: none - Physical Exam Vital Signs: Vital Signs - 24 hr Temp Pulse Resp BP Pulse Ox 03/11/17 13:56 98.5 F 111 H 24 175/82 93 L 03/11/17 13:00 96 03/11/17 12:57 100 H 20 169/84 95 03/11/17 12:23 118 H 20 184/100 94 L 03/11/17 11:20 99.1 F 110 H 20 145/85 96 General Appearance: no apparent distress, alert Respiratory Exam: normal breath sounds, lungs clear, No respiratory distress Cardiovascular Exam: regular rate/rhythm, normal heart sounds, normal peripheral pulses Gastrointestinal/Abdomen Exam: soft, normal bowel sounds, No tenderness, No mass Extremity Exam: other (large indurated, erythematous and exquisistely tender area left medial upper thigh extending to buttocks. surrounding erythema and induration. roughly 8cm length) Results - Labs Lab/Micro Results: Lab Results-Last 24 Hours 03/11/17 Range/Units Unknown Hemoglobin A1c 4.9 (4.5-6.2) Assessment/Plan (1) Abscess of left thigh Current Visit: Yes Status: Acute Assessment & Plan: on IV vanc, IV fluids pain control and anti-emetics. surgery consult requested, will likely require surgical incision and drainage. Code(s): L02.416 - CUTANEOUS ABSCESS OF LEFT LOWER LIMB (2) Cellulitis of buttock, left Current Visit: Yes Status: Acute Code(s): L03.317 - CELLULITIS OF BUTTOCK (3) Diabetes type 2, controlled Current Visit: Yes Status: Acute Assessment & Plan: a1c well controlled, ordered SSI Code(s): E11.9 - TYPE 2 DIABETES MELLITUS WITHOUT COMPLICATIONS (4) Depression Current Visit: Yes Status: Acute Code(s): F32.9 - MAJOR DEPRESSIVE DISORDER , SINGLE EPISODE, UNSPECIFIED
[2017-03-11] MEDS ORDERED: Lactated Ringers 1,000 ML IV ONE (15:52)
[2017-03-11] MEDS ORDERED: Sodium Chloride 0.9% 1000 ML 1,000 ML ONE (16:42)
[2017-03-11] MEDS ORDERED: Zosyn 3.375GM/100 Ml D5W 3.375 GM/100 ML IVPB IV SCH (17:00)
[2017-03-11] MEDS ORDERED: SUBLIMAZE 100 MCG/2 ML ONE (17:27)
[2017-03-11] MEDS ORDERED: DILAUDID 2 MG INJECTION ONE (17:27)
[2017-03-11] MEDS ORDERED: MORPHINE SULFATE 2 MG INJ IV PRN (18:03)
[2017-03-11] MEDS: VANCOCIN 1 GM VIAL*** 1.5 GM in Sodium Chloride 0.9% 500 ML 500 ML IV SCH (18:09)
[2017-03-11] MEDS: Sodium Chloride 0.9% 1000 ML 1,000 ML IV SCH (18:15)
[2017-03-11] MEDS ORDERED: MORPHINE SULFATE 2 MG INJ ONE (18:17)
[2017-03-11] MEDS ORDERED: PROVENTIL 2.5 MG/3 ML NEB IH ONE (18:37)
[2017-03-11] MEDS ORDERED: DILAUDID 1 MG/1ML PCA IV PRN (18:44)
[2017-03-11] MEDS ORDERED: PROVENTIL 2.5 MG/3 ML NEB IH PRN (18:44)
[2017-03-11] MEDS: NovoLOG Insulin SQ PRN (22:04)
[2017-03-11] MEDS: Zosyn 3.375GM/100 Ml D5W 3.375 GM/100 ML IVPB IV SCH (22:59)
[2017-03-12] MEDS: NovoLOG Insulin SQ PRN ×5 (00:20→23:31)
[2017-03-12] MEDS: Zosyn 3.375GM/100 Ml D5W 3.375 GM/100 ML IVPB IV SCH ×5 (01:07→23:31)
[2017-03-12] MEDS: VANCOCIN 1 GM VIAL*** 1.5 GM in Sodium Chloride 0.9% 500 ML 500 ML IV SCH ×3 (01:20→19:07)
[2017-03-12 05:47] LABS: BASOPHIL % 0.3 % (0.0-0.4); Eosinophil % 2.4 % (0.00-5.0); Granulocytes % 70.5 % (36.0-66.0); Lymphocytes % 16.4 % (24.0-44.0); Mean Cell Volume 90.3 fl (78-100); Mean Corpuscular Hemoglobin 30.6 pg (26-32); Mean Platelet Volume 10.7 fl (6-9.5); Monocytes % 10.4 % (0.0-12.0); Platelet Count 173 K/mm3 (150-450); Red Blood Count 4.12 M/mm3 (4.1-5.6); Red Cell Distribution Width 12.1 % (11.5-14.0); White Blood Count 9.5 K/mm3 (4.0-10.5)
[2017-03-12 06:00] LABS: ANION GAP 14.3 MEQ/L (5-15); BLOOD UREA NITROGEN 14 mg/dL (9-20); CHLORIDE 101 mEq/L (98-107); Glucose 318 MG/DL (70-110); SODIUM 134 mEq/L (136-145)
[2017-03-12] MEDS: Sodium Chloride 0.9% 1000 ML 1,000 ML IV SCH (07:49)
[2017-03-12] MEDS ORDERED: Versed 2 MG/2 ML Injection IV ONE (08:00)
[2017-03-12] MEDS ORDERED: BRIDION 200MG/2ML IV ONE (08:00)
[2017-03-12] MEDS ORDERED: TORAdol 30 mg Injection IV ONE (08:00)
[2017-03-12] MEDS ORDERED: SUBLIMAZE 100 MCG/2 ML IV ONE (08:00)
[2017-03-12] MEDS ORDERED: DIPRIVAN 200 MG/20 ML IV ONE (08:00)
[2017-03-12] MEDS ORDERED: Zofran 4 MG/2 ML VIAL IV ONE (08:00)
[2017-03-12] MEDS ORDERED: Quelicin Fliptop 200 MG/10 ML IV ONE (08:00)
[2017-03-12] MEDS ORDERED: Zemuron 100 MG/10 ML IV ONE (08:00)
--- NOTE | 2017-03-12 08:18 | CONS ---
CONSULT DATE: 03/11/2017 HISTORY: A 26 year-old gentleman painful, swollen, red area left upper thigh medial area towards the groin worse over the past week. He has diabetes but is not taking medication for it. He has hypertension that he does not take any medication for. PAST MEDICAL HISTORY: Hypertension, diabetes type 2, anxiety, depression. Again, he does not take any medications. PAST SURGICAL HISTORY: He had bone slip in his hip in the past. He also had some tubes in his ears it sounds like. ALLERGIES: NKDA. FAMILY HISTORY: Cancer, diabetes, heart disease according to the patient. SOCIAL HISTORY: Two pack per day smoker. He reports only occasional alcohol use. REVIEW OF SYSTEMS: Twelve systems reviewed pertinent for as noted above. He does wear glasses. No chest pain or palpitations otherwise pertinent for as noted above. No abdominal pain, nausea or vomiting. LAB DATA AND TESTS: White count was 15.8, hemoglobin 15.2, PLT 193,000. Liver function tests unremarkable. PHYSICAL EXAMINATION: Temperature 99.1F earlier. GENERAL: No acute distress. HEENT: Sclera nonicteric. NECK: No JVD. CHEST: Equal excursion, nonlabored breathing. CVS: Regular rhythm and pulse. ABDOMEN: Soft, obese. His groin towards his left thigh area has got an indurated area consistent with infection, abscess and some devitalized tissue in need of debridement and drainage. NEURO: Alert, moving extremities grossly symmetrically. No localized motor deficits noted. IMPRESSION: Left thigh up towards the groin infection whether infected cyst, whether hidradenitis or other furunclitis. Either way I feel the patient needs operative excisional debridement and drainage, debridement of any devitalized tissue. Risks and benefits explained in detail but not limited to bleeding or infection, risk of ongoing infection or other issues possibly requiring other procedures or additional debridement down the road. General risk of anesthesia, deep venous thrombosis, pulmonary embolism, pneumonia, general risk of aches or pains. The fact that he would have some packing in the wound afterwards would need to heal by secondary intent with the aid of antibiotics, need to be likely changed on a daily basis. He expressed understanding as well as general risk of aches and pains, will proceed with OR time available with excisional debridement left thigh-groin area possible drainage of any underlying abscess if present.
--- NOTE | 2017-03-12 08:31 | OP ---
SURGERY DATE/TIME: 03/11/2017 1617 PREOPERATIVE DIAGNOSIS: Left proximal thigh adjacent to groin cellulitis infection and suspected necrosis and underlying abscess. POSTOPERATIVE DIAGNOSIS: Left proximal thigh adjacent to groin cellulitis infection and suspected necrosis and underlying abscess. PROCEDURE: Excisional debridement of 12 cm long by 5 cm wide by 4.5 cm deep skin devitalized subcutaneous tissue and portion of devitalized fascia necrosis in the base of the wound down to viable bleeding tissue with culture, irrigation and packing. SURGEON: Dr. Roger Cunningham. ANESTHESIA: General. ESTIMATED BLOOD LOSS: Minimal. INDICATIONS: As noted above. Risks and benefits explained in detail and not limited to and consent obtained. The site was confirmed with the patient in the preoperative holding area. Informed consent obtained as outlined per surgical consult. DESCRIPTION OF PROCEDURE AND FINDINGS: The patient is taken to the operating room. General anesthesia was introduced. In lithotomy position his groin and thigh were prepped and draped in usual sterile fashion. After official time out and no disagreement with planned procedure, starting first with most indurated area more distally on the thigh. Dissection carried down in a gas forming cavity. Sharp debridement was continued. The foul, fernandez purulence was cultured. Suction device and excisional debridement of devitalized subcutaneous fat as well as a portion of fascial necrosis in the deep part of the wound down to viable appearing oozing fascia and subcu fat. Copious amount of irrigation irrigating until clear. Hemostasis controlled with some pinpoint cautery with electrocautery. Good hemostasis was noted. Carefully inspected and all devitalized portions of subcutaneous fat and portion of underlying fascia were debrided down to viable tissue with this viable wound bed identified. Copious amount of irrigation noted to be irrigated clear. There was no other palpable or visible cavities or pockets to debride. The devitalized fat, necrotic fat and small portion of necrotic fascia had been debrided down to viable tissue as well as the overlying skin. Copious irrigation irrigating until clear. Good hemostasis was noted. The wound was then packed with normal saline-soaked Kerlix and sterile dressing. The patient tolerated the procedure well. The findings were discussed with the family or friend out in the waiting area. Continue on IV antibiotics and local wound care at this point. May need to get the [facility] involved.
[2017-03-12] MEDS: ENOXAPARIN SODIUM SQ SCH (09:08)
--- NOTE | 2017-03-12 09:15 | PCM.NOTE ---
Date and Time: 03/12/17912 Subjective Assessment: doing better today, pain is well controlled. hasn't been needing heel caser much. only hurts when dressing is being messed with etc no chest pain, no dyspnea Objective Exam General Appearance: no apparent distress, alert Respiratory Exam: normal breath sounds, lungs clear, No respiratory distress Cardiovascular Exam: regular rate/rhythm, normal heart sounds Gastrointestinal/Abdomen Exam: soft, No tenderness, No mass Rectal Exam: other (extensive incision and drainage noted, surrounding induration and erythema improved. purlent drainage present on dressing) OBJECTIVE DATA Vital Signs: Vital Signs - 24 hr Temp Pulse Resp BP Pulse Ox 03/12/17 07:24 88 18 97 03/12/17 07:13 97.8 F 76 18 156/85 94 L 03/12/17 04:10 98.0 F 87 18 143/87 93 L 03/12/17 04:08 97 03/12/17 03:46 93 L 03/12/17 00:08 97 03/12/17 00:00 98.1 F 89 15 140/90 94 L 03/11/17 21:15 98.1 F 84 18 149/82 94 L 03/11/17 20:15 98.0 F 85 16 144/76 95 03/11/17 20:08 94 L 03/11/17 19:15 97.9 F 83 22 142/75 96 03/11/17 18:57 93 H 22 96 03/11/17 18:45 97.9 F 88 22 130/67 94 L 03/11/17 18:42 98.1 F 83 24 149/69 96 03/11/17 18:15 97.7 F 80 20 149/69 95 03/11/17 18:12 98.1 F 86 24 136/74 96 03/11/17 17:58 97.5 F 88 26 H 134/65 93 L 03/11/17 16:00 98.5 F 104 H 20 174/77 91 L 03/11/17 15:45 98.5 F 104 H 20 174/77 91 L 03/11/17 13:56 98.5 F 111 H 24 175/82 93 L 03/11/17 13:00 96 03/11/17 12:57 100 H 20 169/84 95 03/11/17 12:23 118 H 20 184/100 94 L 03/11/17 11:20 99.1 F 110 H 20 145/85 96 Oxygen-Last 24 hours O2 Percentage 2 Liters = 28% O2 Percentage 2 Liters = 28% O2 Percentage 2 Liters = 28% O2 Percentage 2 Liters = 28% O2 Percentage 2 Liters = 28% O2 Percentage 2 Liters = 28% O2 Percentage 2 Liters = 28% O2 Percentage 2 Liters = 28% O2 Percentage 2 Liters = 28% Pain Assessment - Last Documented Pain Intensity 5 Pain Scale Used 0-10 Pain Scale Intake and Output: Intake & Output 03/09/17 03/10/17 03/11/17 03/12/17 11:59 11:59 11:59 11:59 Intake Total 2758 Output Total 1450 Balance 1308 Weight 122.425 kg Lab Results: Accuchecks Date 03/12/17 Date 03/12/17 Date 03/11/17 Date 03/11/17 Date 03/11/17 Time 06:00 Time 00:00 Time 19:04 Time 15:48 Time 16:02 Accucheck Value: 365 Accucheck Value: 291 Accucheck Value: 244 Accucheck Value: 244 Lab Results-Last 24 Hours 03/11/17 03/11/17 03/11/17 Range/Units 14:15 18:19 Unknown WBC (4.0-10.5) K/mm3 RBC (4.1-5.6) M/mm3 Hgb (12.5-18.0) gm/dl Hct (42-50) % MCV (78-100) fl MCH (26-32) pg MCHC (32-36) g/dl RDW (11.5-14.0) % Plt Count (150-450) K/mm3 MPV (6-9.5) fl Gran % (36.0-66.0) % Lymphocytes % (24.0-44.0) % Monocytes % (0.0-12.0) % Eosinophils % (0.00-5.0) % Basophils % (0.0-0.4) % Basophils # (0-0.4) Sodium (136-145) mEq/L Potassium (3.5-5.1) mEq/L Chloride (98-107) mEq/L Carbon Dioxide (21-32) mEq/L Anion Gap (5-15) MEQ/L BUN (9-20) mg/dL Creatinine (0.55-1.30) mg/dl Estimated GFR ML/MIN Glucose (70-110) MG/DL Hemoglobin A1c 4.9 (4.5-6.2) Calcium (8.5-10.1) mg/dL Troponin I < 0.017 (0.000-0.056) ng/ml Prealbumin 12.9 L (18.0-35.7) mg/dL 03/12/17 03/12/17 Range/Units 05:15 05:15 WBC 9.5 (4.0-10.5) K/mm3 RBC 4.12 (4.1-5.6) M/mm3 Hgb 12.6 (12.5-18.0) gm/dl Hct 37.2 L (42-50) % MCV 90.3 (78-100) fl MCH 30.6 (26-32) pg MCHC 33.9 (32-36) g/dl RDW 12.1 (11.5-14.0) % Plt Count 173 (150-450) K/mm3 MPV 10.7 H (6-9.5) fl Gran % 70.5 H (36.0-66.0) % Lymphocytes % 16.4 L (24.0-44.0) % Monocytes % 10.4 (0.0-12.0) % Eosinophils % 2.4 (0.00-5.0) % Basophils % 0.3 (0.0-0.4) % Basophils # 0.03 (0-0.4) Sodium 134 L (136-145) mEq/L Potassium 4.0 (3.5-5.1) mEq/L Chloride 101 (98-107) mEq/L Carbon Dioxide 23.0 (21-32) mEq/L Anion Gap 14.3 (5-15) MEQ/L BUN 14 (9-20) mg/dL Creatinine 1.33 H (0.55-1.30) mg/dl Estimated GFR > 60 ML/MIN Glucose 318 H (70-110) MG/DL Hemoglobin A1c (4.5-6.2) Calcium 8.2 L (8.5-10.1) mg/dL Troponin I (0.000-0.056) ng/ml Prealbumin (18.0-35.7) mg/dL Multi-Disciplinary Progress Notes: Multi-Disciplinary Progress Notes 03/12/17 07:30 Pharmacy Note by BUTTERMAKER CONTINUOUS CHURN,PHARM Patient's creatinine is 1.33 this morning. Ordering Vanco trough to see if level is therapeutic, will adjust if needed. Jess Tucker, Real Estate Services Coordinator Initialized on 03/12/17 07:30 - END OF NOTE 03/11/17 14:40 Pharmacy Note by BUTTERMAKER CONTINUOUS CHURN,ANKITA Vancomycin pharmacy dosing: Patient had 1g dose in ER, will continue with 1500mg Q8H, trough ordered for 03/13/17 0930, will adjust if needed. Saul Thomson Intern Initialized on 03/11/17 14:40 - END OF NOTE Assessment/Plan (1) Abscess of left thigh Current Visit: Yes Status: Acute Assessment & Plan: appreciate surgery's quick action for incision and drainage, continue vanc and zosyn emperically. Code(s): L02.416 - CUTANEOUS ABSCESS OF LEFT LOWER LIMB (2) Cellulitis of buttock, left Current Visit: Yes Status: Acute Code(s): L03.317 - CELLULITIS OF BUTTOCK (3) Diabetes type 2, controlled Current Visit: Yes Status: Acute Code(s): E11.9 - TYPE 2 DIABETES MELLITUS WITHOUT COMPLICATIONS (4) Depression Current Visit: Yes Status: Acute Code(s): F32.9 - MAJOR DEPRESSIVE DISORDER , SINGLE EPISODE, UNSPECIFIED
[2017-03-12] MEDS ORDERED: TROUGH DRUG LEVELS IJ ONE (09:30)
[2017-03-12] MEDS: Colace 100 MG PO SCH ×2 (09:35→21:13)
[2017-03-12] MEDS: NORCO 5/325 MG PO PRN ×3 (09:35→21:27)
[2017-03-13] MEDS: VANCOCIN 1 GM VIAL*** 1.5 GM in Sodium Chloride 0.9% 500 ML 500 ML IV SCH ×3 (01:35→17:37)
[2017-03-13] MEDS: NORCO 5/325 MG PO PRN ×4 (01:36→17:53)
[2017-03-13] MEDS: Zosyn 3.375GM/100 Ml D5W 3.375 GM/100 ML IVPB IV SCH ×3 (06:02→20:43)
--- NOTE | 2017-03-13 08:06 | PCM.NOTE ---
Date and Time: 03/13/17 0804 Subjective Assessment: pain is improving, no new concerns. tolerating activity, drainage seems to be improving Objective Exam General Appearance: no apparent distress, alert Respiratory Exam: normal breath sounds, lungs clear, No respiratory distress Cardiovascular Exam: regular rate/rhythm, normal heart sounds Gastrointestinal/Abdomen Exam: soft, No tenderness, No mass Extremity Exam: other (left medial upper thigh and buttock, markedly reduced erythema, induration resolving.) OBJECTIVE DATA Vital Signs: Vital Signs - 24 hr Temp Pulse Resp BP Pulse Ox 03/13/17 08:00 98.0 F 84 17 171/82 94 L 03/13/17 07:12 78 16 94 L 03/13/17 03:58 97.8 F 73 16 141/81 94 L 03/13/17 00:00 98.5 F 89 15 156/85 95 03/12/17 20:10 95 03/12/17 20:09 96 H 18 95 03/12/17 20:08 98.2 F 82 16 135/78 94 L 03/12/17 16:00 97.5 F 80 18 130/80 93 L 03/12/17 15:18 95 03/12/17 11:31 97.5 F 73 20 138/74 93 L 03/12/17 10:36 97 03/12/17 09:32 95 Pain Assessment - Last Documented Pain Intensity 0 Pain Scale Used 0-10 Pain Scale Intake and Output: Intake & Output 03/10/17 03/11/17 03/12/17 03/13/17 11:59 11:59 11:59 11:59 Intake Total 2737 Output Total 700 Balance 2037 Lab Results: Accuchecks Date 03/12/17 Date 03/12/17 Time 22:00 Time 11:18 Accucheck Value: 235 Accucheck Value: 221 Accucheck Value: 294 Lab Results-Last 24 Hours 03/12/17 03/13/17 Range/Units 09:28 05:22 Creatinine 1.19 (0.55-1.30) mg/dl Estimated GFR > 60 ML/MIN Vancomycin Trough 13.5 (10-20) UG/ML Multi-Disciplinary Progress Notes: Multi-Disciplinary Progress Notes 03/12/17 10:49 Pharmacy Note by SUPERINTENDENT,PHARM Vancomycin pharmacy to dose: Trough 13.5, WNL. Will continue to check creatinine and trough on Friday, will adjust dose if needed. Initialized on 03/12/17 10:49 - END OF NOTE Assessment/Plan (1) Abscess of left thigh Current Visit: Yes Status: Acute Assessment & Plan: will narrow spectrum of IV abx when culture returns, currently on IV vanc/zosyn , needs to continue with wound care and IV abx for now Code(s): L02.416 - CUTANEOUS ABSCESS OF LEFT LOWER LIMB (2) Cellulitis of buttock, left Current Visit: Yes Status: Acute Code(s): L03.317 - CELLULITIS OF BUTTOCK (3) Diabetes type 2, controlled Current Visit: Yes Status: Acute Code(s): E11.9 - TYPE 2 DIABETES MELLITUS WITHOUT COMPLICATIONS (4) Depression Current Visit: Yes Status: Acute Code(s): F32.9 - MAJOR DEPRESSIVE DISORDER , SINGLE EPISODE, UNSPECIFIED
[2017-03-13] MEDS: Colace 100 MG PO SCH ×2 (08:08→20:43)
[2017-03-13] MEDS: ENOXAPARIN SODIUM SQ SCH (08:08)
[2017-03-13] MEDS: NovoLOG Insulin SQ PRN ×3 (08:09→17:37)
[2017-03-13] MEDS ORDERED: TROUGH DRUG LEVELS IJ SCH (09:30)
[2017-03-14] MEDS: NORCO 5/325 MG PO PRN ×6 (00:07→21:11)
[2017-03-14] MEDS: Zosyn 3.375GM/100 Ml D5W 3.375 GM/100 ML IVPB IV SCH ×2 (01:33→06:37)
[2017-03-14] MEDS: VANCOCIN 1 GM VIAL*** 1.5 GM in Sodium Chloride 0.9% 500 ML 500 ML IV SCH ×3 (02:08→17:06)
[2017-03-14] MEDS: NovoLOG Insulin SQ PRN ×3 (07:20→21:49)
[2017-03-14] MEDS: Colace 100 MG PO SCH ×2 (07:20→21:49)
[2017-03-14] MEDS: ENOXAPARIN SODIUM SQ SCH (07:20)
--- NOTE | 2017-03-14 08:23 | PCM.NOTE ---
Date and Time: 03/14/17820 Subjective Assessment: doing well today, no problems or concerns. he is nervous about packing wound at home and keeping it clean Objective Exam General Appearance: no apparent distress, alert Respiratory Exam: normal breath sounds, lungs clear, No respiratory distress Cardiovascular Exam: regular rate/rhythm, normal heart sounds Gastrointestinal/Abdomen Exam: soft, No tenderness, No mass Extremity Exam: other (large open area, surround induration and erythema) OBJECTIVE DATA Vital Signs: Vital Signs - 24 hr Temp Pulse Resp BP Pulse Ox 03/14/17 07:59 97.8 F 76 20 183/88 93 L 03/14/17 04:06 97.8 F 72 18 160/86 95 03/14/17 00:04 98.2 F 89 16 176/96 96 03/13/17 20:00 98.1 F 63 16 164/91 95 03/13/17 19:44 63 16 95 03/13/17 16:00 97.9 F 88 20 175/90 94 L 03/13/17 12:00 97.5 F 78 20 152/92 95 Pain Assessment - Last Documented Pain Intensity 0 Pain Scale Used 0-10 Pain Scale Intake and Output: Intake & Output 03/11/17 03/12/17 03/13/17 03/14/17 11:59 11:59 11:59 11:59 Intake Total 3237 3438 Output Total 700 675 Balance 6062 0733 Lab Results: Accuchecks Date 03/13/17 Date 03/13/17 Date 03/13/17 Time 22:00 Time 16:30 Time 11:30 Accucheck Value: 185 Accucheck Value: 349 Accucheck Value: 216 Assessment/Plan (1) Abscess of left thigh Current Visit: Yes Status: Acute Assessment & Plan: continue vanc/zosyn, wound care. culture shows no growth at this time but gram stain +GPC Code(s): L02.416 - CUTANEOUS ABSCESS OF LEFT LOWER LIMB (2) Cellulitis of buttock, left Current Visit: Yes Status: Acute Code(s): L03.317 - CELLULITIS OF BUTTOCK (3) Diabetes type 2, controlled Current Visit: Yes Status: Acute Code(s): E11.9 - TYPE 2 DIABETES MELLITUS WITHOUT COMPLICATIONS (4) Depression Current Visit: Yes Status: Acute Code(s): F32.9 - MAJOR DEPRESSIVE DISORDER , SINGLE EPISODE, UNSPECIFIED
[2017-03-14] MEDS ORDERED: TROUGH DRUG LEVELS IJ SCH (09:30)
[2017-03-14] MEDS: Coreg 3.125 MG PO SCH ×2 (14:49→21:49)
[2017-03-14] MEDS: SODIUM CHLORIDE 0.45% W/ 20 mEq KCL 1,000 ML IV SCH (14:49)
[2017-03-15] MEDS: NORCO 5/325 MG PO PRN ×3 (01:25→17:54)
[2017-03-15] MEDS: SODIUM CHLORIDE 0.45% W/ 20 mEq KCL 1,000 ML IV SCH (02:47)
[2017-03-15] MEDS ORDERED: TROUGH DRUG LEVELS IJ ONE (05:30)
[2017-03-15] MEDS: VANCOCIN 1 GM VIAL*** 1.5 GM in Sodium Chloride 0.9% 500 ML 500 ML IV SCH ×2 (05:34→21:08)
[2017-03-15 05:41] LABS: BASOPHIL % 0.5 % (0.0-0.4); Eosinophil % 4.2 % (0.00-5.0); Granulocytes % 62.4 % (36.0-66.0); Lymphocytes % 23.8 % (24.0-44.0); Mean Cell Volume 92.3 fl (78-100); Mean Corpuscular Hemoglobin 30.6 pg (26-32); Mean Platelet Volume 10.2 fl (6-9.5); Monocytes % 9.1 % (0.0-12.0); Platelet Count 209 K/mm3 (150-450); Red Blood Count 3.66 M/mm3 (4.1-5.6); White Blood Count 6.2 K/mm3 (4.0-10.5)
[2017-03-15 06:02] LABS: ALBUMIN 2.6 g/dL (3.4-5.0); ANION GAP 13.5 MEQ/L (5-15); BILIRUBIN,TOTAL 0.3 mg/dL (0.2-1.0); Total Protein 5.8 gm/dL (6.4-8.2)
[2017-03-15] MEDS: Colace 100 MG PO SCH ×2 (09:19→21:07)
[2017-03-15] MEDS: Coreg 3.125 MG PO SCH ×3 (09:19→21:07)
[2017-03-15] MEDS: ENOXAPARIN SODIUM SQ SCH (09:19)
[2017-03-15] MEDS ORDERED: Senokot-S Tablet PO SCH (10:00)
[2017-03-15] MEDS: NovoLOG Insulin SQ PRN ×2 (11:41→21:07)
--- NOTE | 2017-03-15 12:50 | PCM.NOTE ---
Date and Time: 03/15/17 1245 Subjective Assessment: his pain is still severe at the incision and drainage site the po hydrocodone is not helping this and his blood pressure is very high but was checked last just after the packing changed. there is no significant drainage and the packing is being changed twice a day. No fever he is very uncomfortable. No BM since the day of arrival either. his zosyn was stopped yesterday and vanc was supratherapeutic dose range and some ROSA assocaited as well. he has been afebrile no chills some nausea and vomitted once today. Objective Exam General Appearance: no apparent distress, alert, obese Neurologic Exam: alert, oriented x 3, cooperative, normal mood/affect, nml cerebellar function, sensation nml, No motor deficits Skin Exam: normal color, warm, dry, other (left medial proximal thigh with large incision with clean tissue no surrounding redness now packed with blood tinged drainage currently) Eye Exam: PERRL, EOMI, eyes nml inspection Ears, Nose, Throat Exam: normal ENT inspection, pharynx normal, moist mucous membranes Neck Exam: normal inspection, non-tender, supple, full range of motion Respiratory Exam: normal breath sounds, lungs clear, No respiratory distress Cardiovascular Exam: regular rate/rhythm, normal heart sounds Gastrointestinal/Abdomen Exam: soft, No tenderness, No mass Extremity Exam: normal inspection, normal range of motion Back Exam: normal inspection, normal range of motion, No CVA tenderness, No vertebral tenderness Male Genitalia Exam: deferred Rectal Exam: deferred OBJECTIVE DATA Vital Signs: Vital Signs - 24 hr Temp Pulse Resp BP Pulse Ox 03/15/17 11:36 98.3 F 65 18 183/89 95 03/15/17 09:06 76 18 93 L 03/15/17 07:13 97.6 F 76 18 180/91 93 L 03/15/17 04:00 98.2 F 84 19 101/63 95 03/14/17 23:44 98.4 F 75 25 H 188/123 94 L 03/14/17 20:05 83 20 94 L 03/14/17 19:43 98.6 F 83 20 159/87 93 L 03/14/17 16:00 98.4 F 70 20 173/88 93 L Pain Assessment - Last Documented Pain Intensity 5 Pain Scale Used 0-10 Pain Scale Intake and Output: Intake & Output 03/13/17 03/14/17 03/15/17 03/16/17 11:59 11:59 11:59 11:59 Intake Total 3235 6975 7946 Output Total 018 111 1271 Balance 1686 7323 1343 Weight 122.425 kg Lab Results: Accuchecks Date 03/15/17 Date 03/14/17 Date 03/14/17 Time 07:00 Time 21:00 Time 16:30 Accucheck Value: 189 Accucheck Value: 232 Accucheck Value: 196 Lab Results-Last 24 Hours 03/15/17 03/15/17 03/15/17 Range/Units 05:20 05:20 05:20 WBC 6.2 (4.0-10.5) K/mm3 RBC 3.66 L (4.1-5.6) M/mm3 Hgb 11.2 L (12.5-18.0) gm/dl Hct 33.8 L (42-50) % MCV 92.3 (78-100) fl MCH 30.6 (26-32) pg MCHC 33.1 (32-36) g/dl RDW 12.0 (11.5-14.0) % Plt Count 209 (150-450) K/mm3 MPV 10.2 H (6-9.5) fl Gran % 62.4 (36.0-66.0) % Lymphocytes % 23.8 L (24.0-44.0) % Monocytes % 9.1 (0.0-12.0) % Eosinophils % 4.2 (0.00-5.0) % Basophils % 0.5 (0.0-0.4) % Basophils # 0.03 (0-0.4) Sodium 143 (136-145) mEq/L Potassium 4.0 (3.5-5.1) mEq/L Chloride 107 (98-107) mEq/L Carbon Dioxide 26.0 (21-32) mEq/L Anion Gap 13.5 (5-15) MEQ/L BUN 7 L (9-20) mg/dL Creatinine 1.54 H (0.55-1.30) mg/dl Estimated GFR 58 ML/MIN Glucose 189 H (70-110) MG/DL Calcium 8.3 L (8.5-10.1) mg/dL Total Bilirubin 0.30 (0.2-1.0) mg/dL AST 22 (15-37) U/L ALT 33 (12-78) U/L Alkaline Phosphatase 87 (46-116) U/L Serum Total Protein 5.8 L (6.4-8.2) gm/dL Albumin 2.6 L (3.4-5.0) g/dL Vancomycin Trough 24.8 H (10-20) UG/ML Assessment/Plan (1) Acute kidney injury Current Visit: Yes Status: Acute Assessment & Plan: mild currently likely secondary to the vanc + zosyn. zosyn was stopped yesterday vanc doseing adjusted by pharmacy continue iv hydration. with the nausea and vomiting this am not able to switch to po alternative yet. he has wound culture but no growth to date thus far. if nausea improved renal function stable htn stable possible home tomorrow on po clinda and outpatient daily dressing changes. Code(s): N17.9 - ACUTE KIDNEY FAILURE, UNSPECIFIED (2) Hypertension Current Visit: Yes Status: Acute Assessment & Plan: increase his carvedilol labile had one reading of 101/63 the rest have been elevated Code(s): I10 - ESSENTIAL (PRIMARY) HYPERTENSION (3) Vomiting Current Visit: Yes Status: Acute Code(s): R11.10 - VOMITING, UNSPECIFIED (4) Abscess of left thigh Current Visit: Yes Status: Acute Code(s): L02.416 - CUTANEOUS ABSCESS OF LEFT LOWER LIMB (5) Diabetes type 2, controlled Current Visit: Yes Status: Acute Code(s): E11.9 - TYPE 2 DIABETES MELLITUS WITHOUT COMPLICATIONS (6) Depression Current Visit: Yes Status: Acute Code(s): F32.9 - MAJOR DEPRESSIVE DISORDER , SINGLE EPISODE, UNSPECIFIED
[2017-03-15] MEDS: OXYCODONE-ACETAMINOPHEN 10-325 PO PRN (22:00)
[2017-03-16] MEDS: OXYCODONE-ACETAMINOPHEN 10-325 PO PRN ×3 (02:09→10:16)
[2017-03-16] MEDS: Colace 100 MG PO SCH (09:19)
[2017-03-16] MEDS: VANCOCIN 1 GM VIAL*** 1.5 GM in Sodium Chloride 0.9% 500 ML 500 ML IV SCH (09:20)
[2017-03-16] MEDS: ENOXAPARIN SODIUM SQ SCH (09:20)
[2017-03-16 10:04] LABS: ANION GAP 13.1 MEQ/L (5-15); Carbon Dioxide 27.2 mEq/L (21-32); Potassium 3.8 mEq/L (3.5-5.1)
--- NOTE | 2017-03-16 10:33 | PCM.DCORD ---
- Discharge Discharge Date: 03/16/17 (Daily outpatient wound care dressing changes) Disposition: Home, Self-Care Condition: Stable Prescriptions: New Clindamycin HCl 300 mg PO TID #21 capsule Glipizide 5 mg [Glucotrol 5 MG] 5 mg PO BID #60 tablet Sennosides/Docusate Sodium [Senna-S Tablet] 2 each PO BID PRN #30 tablet PRN Reason: Constipation Amlodipine Besylate 10 mg [Norvasc 10 MG] 10 mg PO DAILY #30 tablet Follow up with: GHAZALA LUNA MD [Primary Care Provider] - TRACY WILLOUGHBY [COURTESY STAFF] - 03/24/17 8:00 am ([facility]) Forms: Patient Portal Information
[2017-03-16 11:49] VITALS: BP 193/81; PULSE 62; O2SAT 96
[2017-03-16] MEDS: NovoLOG Insulin SQ PRN (11:55)
--- NOTE | 2017-03-16 16:12 | PCM.DS ---
Discharge Summary Date of Admission: 03/12/17 09:13 Date of Discharge: 03/16/17 Admitting Physician: GHAZALA LUNA Primary Care Provider: GHAZALA LUNA Allergies Allergies No Known Drug Allergies Allergy (Verified 03/11/17 11:23) Hospital Summary - Hospital Course Hospital Course: Edinson is a type 2 diabetic who stopped his diabetic medications when he lost his insurance after turning 26 this summer. He developed sudden rapidly worsening redness of the left thigh/buttocks and presented to ED where he was found to have sepsis with abscess that was drained surgically with large I and D. His blood pressure continued to run elevated throughout his admission and he was initially placed on carvilol and this was increased without much help. He was treated with IV vanc and zosyn but had some renal impairment and the gram stain had gram + thus zosyn was dropped and vanc continued which was slightly supratherapeutic with trough of 24.9. He had dressing changed twice a day and the wound was looking good from infection standpoint but due to wound location he had great difficulty sitting and is unable to change the dressing himself. IT is still a large open wound healing by secondary intention currently. He had difficulty with pain control as well and had no bm since the first day of hospitalization and has been using narcotic pain control. He is ambulating on his own and tolerating po now. Without signs of active infection now the culture unfortunately has been no growth. Will de-escalate antibiotics and complete coarse with po clindamycin and have outpatient change dressing daily. He will have f/u with Dr. Willoughby for the wound and Dr. Luna to continue to titrate his diabetic and hypertensive medications as an outpatient and recheck his renal function as well. - Vitals & Intake/Output Vital Signs: Vital Signs Temperature 98.4 F 03/16/17 11:48 Pulse Rate 62 03/16/17 11:48 Respiratory Rate 18 03/16/17 11:48 Blood Pressure 193/81 03/16/17 11:48 O2 Sat by Pulse Oximetry 96 03/16/17 11:48 Oxygen-Last Documented O2 Percentage 2 Liters = 28% Intake & Output: Intake & Output 03/14/17 03/15/17 03/16/17 03/17/17 11:59 11:59 11:59 11:59 Intake Total 3678 3596 1690 Output Total 677 1500 1900 Balance 3003 2096 -210 Weight 122.425 kg - Lab Result Diagrams: 03/15/17 05:20 03/16/17 09:45 Lab Results-Last 24 Hrs: Accuchecks Date 03/15/17 Date 03/15/17 Time 21:00 Time 16:30 Accucheck Value: 203 Accucheck Value: 194 Accucheck Value: 255 Accucheck Value: 145 Lab Results-Last 24 Hours 03/16/17 Range/Units 09:45 Sodium 142 (136-145) mEq/L Potassium 3.8 (3.5-5.1) mEq/L Chloride 105 (98-107) mEq/L Carbon Dioxide 27.2 (21-32) mEq/L Anion Gap 13.1 (5-15) MEQ/L BUN 6 L (9-20) mg/dL Creatinine 1.58 H (0.55-1.30) mg/dl Estimated GFR 57 ML/MIN Glucose 229 H (70-110) MG/DL Calcium 8.6 (8.5-10.1) mg/dL Micro Results-Entire Visit: Accuchecks Date 03/15/17 Date 03/15/17 Time 21:00 Time 16:30 Accucheck Value: 203 Accucheck Value: 194 Accucheck Value: 255 Accucheck Value: 145 - Procedures and Test Procedures and Tests throughout Hospitalization: Therapy Orders & Screens 03/12/17 09:26 Incentive Spirometry Assessmen UD Comment: SDC Diagnosis: ABCESS, WOUND INFECTION LEFT UPPER GROIN Discharge Exam General Appearance: obese Neurologic Exam: alert, oriented x 3, cooperative Skin Exam: warm, dry, other (incision left medial thigh/buttocks without surrounding redness or induration packed) Eye Exam: No scleral icterus Neck Exam: supple Respiratory Exam: normal breath sounds, lungs clear Cardiovascular Exam: regular rate/rhythm, No murmur Extremity Exam: normal inspection, No calf tenderness, No pedal edema Final Diagnosis/Problem List - Final Discharge Diagnosis/Problem (1) Acute kidney injury Status: Acute Assessment & Plan: follow up bmp in 1 week at f/u appt hold metformin start glipizide check sugars start amlodipine f/u in 1 week for bp check (2) Hypertension Status: Acute (3) Vomiting Status: Acute (4) Abscess of left thigh Status: Acute (5) Diabetes type 2, controlled Status: Acute (6) Depression Status: Acute - Discharge Discharge Date: 03/16/17 Disposition: Home, Self-Care Condition: Stable Prescriptions: New Clindamycin HCl 300 mg PO TID #21 capsule Glipizide 5 mg [Glucotrol 5 MG] 5 mg PO BID #60 tablet Sennosides/Docusate Sodium [Senna-S Tablet] 2 each PO BID PRN #30 tablet PRN Reason: Constipation Amlodipine Besylate 10 mg [Norvasc 10 MG] 10 mg PO DAILY #30 tablet Instructions: Wound Infection Follow up with: GHAZALA LUNA MD [Primary Care Provider] - TRACY WILLOUGHBY [COURTESY STAFF] - 03/24/17 8:00 am ([facility]) Forms: Patient Portal Information
== END 2017-03-16 13:40 | disposition home or self-care (01) | DRG 674 ==
LOC: ED 11:17 → MED SURG 13:38 → OBSVTOIN 03-12 09:13 → ED 03-12 11:17 → MED SURG 03-12 13:38
PROVIDERS: ADMIT Family Medicine; ATTEND Family Medicine
PROC: 0JBM0ZZ Excision of Left Upper Leg Subcutaneous Tissue and Fascia, Open Approach (ICD-10-PCS; principal; 2017-03-12)
DX: N17.9 Acute kidney failure, unspecified (principal); L02.416 Cutaneous abscess of left lower limb; L03.317 Cellulitis of buttock; I10 Essential (primary) hypertension; R11.10 Vomiting, unspecified; E11.9 Type 2 diabetes mellitus without complications; Z79.4 Long term (current) use of insulin; F41.9 Anxiety disorder, unspecified; F32.9 Major depressive disorder, single episode, unspecified; Z72.0 Tobacco use
CPT/HCPCS: 00400; 36000; 36415; 80048; 80053; 80202; 82565; 82962; 83036; 83605; 84134; 84484; 85025; 87040; 87070; 88304; 93005; 94640; 94760; 94762; 96360; 96361; 96365; 96366; 96374; 96375; 99285; G0378; J0330; J1170; J1650; J1885; J2250; J2270; J2405; J2543; J2704; J3010; J3370; A9270-GY

== ENCOUNTER 2018-12-15 02:15 | Emergency (ER) | payer MEDICAID, OTHER ==
[2018-12-15 02:40] VITALS: O2SAT 96
[2018-12-15] MEDS ORDERED: Augmentin 875-125 Tablet PO ONE (03:27)
[2018-12-15] MEDS ORDERED: Augmentin 875-125 Tablet ONE (03:30)
--- NOTE | 2018-12-15 04:01 | ERPHSYRPT ---
- History of Present Illness Time Seen by Provider: 12/15/18 02:45 Source: patient Exam Limitations: clinical condition Patient Subjective Stated Complaint: Alfonso big toe pain Triage Nursing Assessment: Patient ambulated back to ED per self and transferred to bed. Patient A+O X 3. Patient's skin pink, warm and dry. Patient complains of alfonso areas on big toe. Patient states he has had areas for 4 -5 months and has been treated with PO antibiotics (unknown of name/dose). Patient states he is a type 1 diabetic and not currently taking medication due to insurance reasons. Patient states pain is 10/10 and unable to put pressure on toes when walking. Physician History: PATIENT COMPLAINS OF BILATERAL PAINFUL CORNS BELOW BOTH GREAT TOES OVER THE PAST 6 MONTHS, DENIES INJURY, DRAINAGE, FEVER OR CHILLS Method of Injury: unknown Occurred: other (6 MONTHS) Quality: constant Severity of Pain-Max: moderate Severity of Pain-Current: moderate Lower Extremities Pain: 1st toe: bilateral Modifying Factors: Improves With: movement, pain medication Allergies/Adverse Reactions: No Known Drug Allergies Allergy (Verified 12/15/18 02:29) Hx Tetanus, Diphtheria Vaccination/Date Given: No Hx Influenza Vaccination/Date Given: No Hx Pneumococcal Vaccination/Date Given: No Immunizations Up to Date: Yes - Review of Systems Constitutional: No Fever, No Chills Eyes: No Symptoms Ears, Nose, & Throat: No Symptoms Respiratory: No Cough, No Dyspnea Cardiac: No Chest Pain, No Edema, No Syncope Abdominal/Gastrointestinal: No Abdominal Pain, No Nausea, No Vomiting, No Diarrhea Genitourinary Symptoms: No Dysuria Musculoskeletal: Other (BILATERAL TOE PAIN, CORN BELOW GREAT TOE), No Back Pain , No Neck Pain Skin: No Rash Neurological: No Dizziness, No Focal Weakness, No Sensory Changes Psychological: No Symptoms Endocrine: No Symptoms All Other Systems: Reviewed and Negative - Past Medical History Pertinent Past Medical History: Yes Neurological History: No Pertinent History ENT History: No Pertinent History Cardiac History: No Pertinent History Respiratory History: No Pertinent History Endocrine Medical History: Diabetes Type I Musculoskeletal History: No Pertinent History GI Medical History: No Pertinent History History: No Pertinent History Psycho-Social History: Anxiety, Depression Male Reproductive Disorders: No Pertinent History Other Medical History: PT. IS NON-COMPLIANT DIABETIC - Past Surgical History Past Surgical History: Yes Neuro Surgical History: No Pertinent History Cardiac: No Pertinent History Respiratory: No Pertinent History Gastrointestinal: No Pertinent History Genitourinary: No Pertinent History Musculoskeletal: Orthopedic Surgery Male Surgical History: No Pertinent History Other Surgical History: hip right - bone slip- pin placed. tubes placed in ears years ago, now out. I&D left groin 03/11/17 - Social History Smoking Status: Current every day smoker How long have you smoked: 10 Exposure to second hand smoke: No Drug Use: none Patient Lives Alone: No - Nursing Vital Signs Nursing Vital Signs: Initial Vital Signs Temperature 97.6 F 12/15/18 02:30 Pulse Rate 101 H 12/15/18 02:30 Respiratory Rate 18 12/15/18 02:30 Blood Pressure 186/99 12/15/18 02:30 O2 Sat by Pulse Oximetry 96 12/15/18 02:30 Pain Scale Pain Intensity 10 - Physical Exam General Appearance: alert Eyes, Ears, Nose, Throat Exam: moist mucous membranes Neck Exam: non-tender, supple Cardiovascular/Respiratory Exam: chest non-tender, normal breath sounds, regular rate/rhythm, no respiratory distress Gastrointestinal/Abdominal Exam: non-tender, guarding Back Exam: normal inspection, No vertebral tenderness Foot Exam: left foot: soft tissue tenderness (BILATERAL CORNS OVER BILATERAL GREAT TOE LATERAL PIP JOINT, TENDER NO ERYTHEMA) Neuro/Tendon Exam: normal sensation, normal motor functions Mental Status Exam: alert, oriented x 3, cooperative Skin Exam: normal color, warm, dry SpO2 Interpretation: normal SpO2: 96 Ordered Tests: Medication Summary Discontinued Medications Generic Name Dose Route Start Last Admin Trade Name Freq PRN Reason Stop Dose Admin Amoxicillin/Clavulanate Potassium 875 mg 12/15/18 03:27 12/15/18 03:31 Augmentin 875-125 Tablet PO 12/15/18 03:28 875 mg STAT ONE Administration Amoxicillin/Clavulanate Potassium Confirm 12/15/18 03:30 Augmentin 875-125 Tablet Administered 12/15/18 03:31 Dose 875 mg .ROUTE .STK-MED ONE - Departure Departure Disposition: Home Clinical Impression: BILATERAL GREAT TOE CORN'S Condition: Stable Critical Care Time: No Referrals: GHAZALA LUNA MD [Primary Care Provider] - Additional Instructions: ANTIBIOTIC AUGMENTIN 875MG TWICE DAILY FOR 10 DAYS. TYLENOL OR MOTRIN NEEDED FOR PAIN. CONSULT YOUR PRIMARY CARE PROVIDER FOR FOLLOWUP ALONG WITH A HYDRAULIC MINER BLASTING FOR EVALUATION OF CORNS BELOW GREAT TOES. Prescriptions: Amox Tr/Potass Clav. 875 mg [Augmentin 875-125 Tablet] 875 mg PO BID #20 tablet
[2018-12-15 04:09] VITALS: BP 138/78; PULSE 65
== END 2018-12-15 04:15 | disposition home or self-care (01) ==
LOC: ED 02:15
DX: L84 Corns and callosities (principal)
CPT/HCPCS: 99283; A9270-GY

== ENCOUNTER 2019-04-01 00:04 | Emergency (ER) | payer OTHER ==
[2019-04-01] MEDS ORDERED: DILAUDID 2 MG INJECTION IV ONE (00:30)
[2019-04-01] MEDS ORDERED: KEFLEX 500 MG PO ONE (00:30)
[2019-04-01] MEDS ORDERED: Zofran 4 MG/2 ML VIAL IV ONE (00:30)
--- NOTE | 2019-04-01 00:30 | ERPHSYRPT ---
- History of Present Illness Time Seen by Provider: 04/01/19 00:19 Source: patient, family Exam Limitations: no limitations Patient Subjective Stated Complaint: pt c/o severe pain to bilat feet after surgery earlier today Triage Nursing Assessment: we assisted pt out of car to wheelchair, wheeled pt in to register. Brought pt back to 5 via wheelchair. pt c/o bilat lower foot pain as Pt had surgery on 03/31/19 with bone shaved from top of great toes. Pt rates pain 10 on 0-10 scale. Pt vomited x1 at home. Bilat feet are wrapped with bandages, c,d,i. Physician History: patient had bilateral toe surgery done today. He was prescribed pain medication but came to the ER because the pain is so severe that he cannot handle it and the pain medicine is not working. The patient called his foot doctor who told him to come to the ER to get the pain shot. Patient also complains of mild nausea and abdominal discomfort. No other symptoms Method of Injury: other (status post surgery.) Occurred: this morning Quality: constant, throbbing Severity of Pain-Max: severe Severity of Pain-Current: severe Lower Extremities Pain: foot: bilateral Modifying Factors: Improves With: nothing Associated Symptoms: other (nausea) Allergies/Adverse Reactions: No Known Drug Allergies Allergy (Verified 12/15/18 02:29) Home Medications: Hydrocodone Bit/Acetaminophen [Hydrocodon-Acetaminophen 5-325] 1 - 2 tab PO Q4- 6HPRN PRN 04/01/19 [History] Insulin Aspart [Novolog] 60 units SQ BIDWMEALS 04/01/19 [History] Insulin Detemir [Levemir] 80 units SQ BID 04/01/19 [History] Hx Tetanus, Diphtheria Vaccination/Date Given: (unknown) Hx Influenza Vaccination/Date Given: No Hx Pneumococcal Vaccination/Date Given: No Immunizations Up to Date: No (unknown) - Review of Systems Constitutional: No Fever, No Chills Eyes: No Symptoms Ears, Nose, & Throat: No Symptoms Respiratory: No Cough, No Dyspnea Cardiac: No Chest Pain, No Edema, No Syncope Abdominal/Gastrointestinal: Nausea, No Abdominal Pain, No Vomiting, No Diarrhea Genitourinary Symptoms: No Dysuria Musculoskeletal: Other (bilateral great toe pain, bilateral foot pain.), No Back Pain, No Neck Pain Skin: Other (bilateral great toe pain, bilateral foot pain.), No Rash Neurological: No Dizziness, No Focal Weakness, No Sensory Changes Psychological: No Symptoms Endocrine: No Symptoms All Other Systems: Reviewed and Negative - Past Medical History Pertinent Past Medical History: Yes Neurological History: No Pertinent History ENT History: No Pertinent History Cardiac History: No Pertinent History Respiratory History: No Pertinent History Endocrine Medical History: Diabetes Type I Musculoskeletal History: No Pertinent History GI Medical History: No Pertinent History History: No Pertinent History Psycho-Social History: Anxiety, Depression Male Reproductive Disorders: No Pertinent History Other Medical History: PT. IS NON-COMPLIANT DIABETIC - Past Surgical History Past Surgical History: Yes Neuro Surgical History: No Pertinent History Cardiac: No Pertinent History Respiratory: No Pertinent History Gastrointestinal: No Pertinent History Genitourinary: No Pertinent History Musculoskeletal: Orthopedic Surgery Male Surgical History: No Pertinent History Other Surgical History: hip right - bone slip- pin placed. tubes placed in ears years ago, now out. I&D left groin 03/11/17. bone shaved from bilat great toes 03/31/19 - Social History Smoking Status: Current every day smoker How long have you smoked: 10 yrs Exposure to second hand smoke: No Drug Use: none Patient Lives Alone: No - Nursing Vital Signs Nursing Vital Signs: Initial Vital Signs Temperature 97.6 F 04/01/19 00:07 Pulse Rate 114 H 04/01/19 00:07 Respiratory Rate 24 04/01/19 00:07 Blood Pressure 196/100 04/01/19 00:07 O2 Sat by Pulse Oximetry 95 04/01/19 00:07 Pain Scale Pain Intensity [Left Foot] 10 Pain Intensity [Right Foot] 10 Pain Intensity 10 - Physical Exam General Appearance: alert Eyes, Ears, Nose, Throat Exam: moist mucous membranes Neck Exam: non-tender, supple Cardiovascular/Respiratory Exam: chest non-tender, normal breath sounds, regular rate/rhythm, no respiratory distress Gastrointestinal/Abdominal Exam: non-tender, soft, no organomegaly, no hernia, guarding Back Exam: normal inspection, No vertebral tenderness Hips Exam: bilateral: non-tender, normal inspection Legs Exam: bilateral leg: non-tender, normal inspection Knees Exam: bilateral knee: non-tender, normal inspection, normal range of motion Ankle Exam: bilateral ankle: non-tender, normal inspection Foot Exam: bilateral foot: other (bilateral great toe pain, bilateral foot pain. bilat dressing) Neuro/Tendon Exam: normal sensation, normal motor functions, normal tendon functions Mental Status Exam: alert, oriented x 3, cooperative Skin Exam: normal color, warm, dry SpO2 Interpretation: normal SpO2: 95 O2 Delivery: Room Air - Course Nursing assessment & vital signs reviewed: Yes - Progress Progress: unchanged Counseled pt/family regarding: diagnosis, need for follow-up (advised patient to see his foot doctor in the morning.) - Departure Departure Disposition: Home Clinical Impression: Foot pain, bilateral Condition: Stable Critical Care Time: No Referrals: GHAZALA LUNA MD [Primary Care Provider] - As Directed Instructions: Chronic Pain (DC) Plan of Treatment: doctor in the morning. take medicine as prescribed ,continue home medications. Prescriptions: Ondansetron ODT 4 MG [Zofran Odt 4 mg] 4 mg PO Q6H PRN PRN #10 tab.rapdis PRN Reason: Nausea Cephalexin Mh 500 mg [Keflex 500 mg] 500 mg PO BID 7 Days #14 capsule
[2019-04-01] MEDS ORDERED: KEFLEX 500 MG ONE (00:34)
[2019-04-01] MEDS ORDERED: Zofran 4 MG/2 ML VIAL ONE (00:34)
[2019-04-01] MEDS ORDERED: Hydromorphone 1 mg/ml Ampule ONE ×2 (00:35→01:31)
[2019-04-01] MEDS ORDERED: Reglan 10 MG/2 ML IV ONE (01:05)
[2019-04-01] MEDS ORDERED: Sodium Chloride 0.9% 1000 ML 1,000 ML IV STA (01:05)
[2019-04-01] MEDS ORDERED: Sodium Chloride 0.9% 1000 ML 1,000 ML ONE ×2 (01:11→01:32)
[2019-04-01] MEDS ORDERED: Reglan 10 MG/2 ML ONE (01:11)
[2019-04-01 01:19] LABS: BASOPHIL % 0.2 % (0.0-0.4); Basophil (Absolute #) 0.03 (0-0.4); Eosinophil % 2.7 % (0.00-5.0); Eosinophil (Absolute #) 0.38 (0-0.5); Granulocyte Absolute (ANC) 8.86 (1.4-6.9); Hematocrit 45.2 % (42-50); Hemoglobin 15.6 gm/dl (12.5-18.0); Lymphocyte (Absolute #) 3.85 (1.0-4.6); Lymphocytes % 27.4 % (24.0-44.0); Mean Cell Volume 89.5 fl (78-100); Mean Corpuscular Hemoglobin 30.9 pg (26-32); Mean Corpuscular Hgb Concent. 34.5 g/dl (32-36); Monocyte (Absolute #) 0.94 (0.0-1.3); Monocytes % 6.7 % (0.0-12.0); Platelet Count 243 K/mm3 (150-450); Red Blood Count 5.05 M/mm3 (4.1-5.6); Red Cell Distribution Width 13.1 % (11.5-14.0); White Blood Count 14.1 K/mm3 (4.0-10.5)
[2019-04-01] MEDS ORDERED: DEMEROL 25MG SYRINGE IV ONE (01:24)
[2019-04-01] MEDS ORDERED: TORAdol 30 mg Injection IV ONE (01:24)
[2019-04-01] MEDS ORDERED: ROCEPHIN 1 Gm-D5w 50 ml Bag** 1 G/50 ML IVPB IV STA (01:26)
[2019-04-01] MEDS ORDERED: DEMEROL 25MG SYRINGE ONE (01:31)
[2019-04-01] MEDS ORDERED: TORAdol 30 mg Injection ONE (01:31)
[2019-04-01] MEDS ORDERED: ROCEPHIN 1 Gm-D5w 50 ml Bag** 1 G/50 ML IVPB IV ONE (01:32)
[2019-04-01 01:40] LABS: ALBUMIN 4.5 g/dL (3.5-5.0); ALKALINE PHOSPHATASE 78 U/L (38-126); ANION GAP 17.3 MEQ/L (5-15); BLOOD UREA NITROGEN 16 mg/dL (9-20); CHLORIDE 97 mmol/L (98-107); Calcium 9.5 mg/dL (8.4-10.2); Carbon Dioxide 27 mmol/L (22-30); Creatinine 1 0.72 mg/dL (0.66-1.25); Glucose 260 mg/dL (74-106); Potassium 4.5 mmol/L (3.5-5.1); SGOT/AST 24 U/L (17-59); SGPT/ALT 31 U/L (0-50); SODIUM 137 mmol/L (137-145); Total Protein 8.2 g/dL (6.3-8.2)
[2019-04-01 01:41] LABS: TROPONIN < 0.012 ng/mL (0.000-0.034)
[2019-04-01 02:36] VITALS: BP 128/81; PULSE 58; O2SAT 98
== END 2019-04-01 02:35 | disposition home or self-care (01) ==
LOC: ED 00:04
DX: M79.672 Pain in left foot (principal); M79.671 Pain in right foot; Z98.890 Other specified postprocedural states; R11.2 Nausea with vomiting, unspecified; E10.9 Type 1 diabetes mellitus without complications; Z79.4 Long term (current) use of insulin; Z79.891 Long term (current) use of opiate analgesic
CPT/HCPCS: 36415; 80053; 82962; 84484; 85025; 93005; 93041; 96365; 96374; 96375; 99284; J0696; J1170; J1885; J2175; J2405; A9270-GY

== ENCOUNTER 2021-06-17 20:57 | Emergency (ER) | payer OTHER ==
[2021-06-17 22:27] LABS: Absolute Neutrophil Ct (ANC) 8.07 (1.4-6.9); BASOPHIL % 0.2 % (0.0-0.4); Basophil (Absolute #) 0.02 (0-0.4); Eosinophil % 1.4 % (0.00-5.0); Eosinophil (Absolute #) 0.17 (0-0.5); Hematocrit 45.4 % (42-50); Hemoglobin 15.6 gm/dl (12.5-18.0); Lymphocyte (Absolute #) 3.14 (1.0-4.6); Lymphocytes % 25.7 % (24.0-44.0); Mean Cell Volume 88.3 fl (78-100); Mean Corpuscular Hemoglobin 30.4 pg (26-32); Mean Corpuscular Hgb Concent. 34.4 g/dl (32-36); Mean Platelet Volume 10.1 fl (7.5-11.0); Monocyte (Absolute #) 0.84 (0.0-1.3); Monocytes % 6.9 % (0.0-12.0); Neutrophil % 65.8 % (36.0-66.0); Platelet Count 286 K/mm3 (150-450); Red Blood Count 5.14 M/mm3 (4.1-5.6); Red Cell Distribution Width 12.8 % (11.5-14.0); White Blood Count 12.2 K/mm3 (4.0-10.5)
[2021-06-17 22:37] VITALS: BP 182/132; PULSE 120; O2SAT 99
[2021-06-17 22:45] LABS: ACETAMINOPHEN < 10 ug/ml (10-30); ALBUMIN 4.6 g/dL (3.5-5.0); ALKALINE PHOSPHATASE 115 U/L (38-126); ANION GAP 16.6 MEQ/L (5-15); BLOOD UREA NITROGEN 11 mg/dL (9-20); CHLORIDE 100 mmol/L (98-107); Calcium 9.5 mg/dL (8.4-10.2); Carbon Dioxide 22 mmol/L (22-30); Creatinine 1 0.76 mg/dL (0.66-1.25); EST GLOMERULAR FILTRATION RATE > 60.0 ML/MIN; ETHYL ALCOHOL < 10 mg/dL (0-10); Glucose 254 mg/dL (74-106); Potassium 3.8 mmol/L (3.5-5.1); SALICYLATE < 1.0 mg/dL (2-20); SGOT/AST 22 U/L (17-59); SGPT/ALT 21 U/L (0-50); SODIUM 135 mmol/L (137-145); Total Protein 7.6 g/dL (6.3-8.2)
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
== END 2021-06-17 23:00 | disposition left against medical advice (07) ==
LOC: ED 20:57
DX: F29 Unspecified psychosis not due to a substance or known physiological condition (principal); I10 Essential (primary) hypertension; E11.8 Type 2 diabetes mellitus with unspecified complications; Z91.19 Patient's noncompliance with other medical treatment and regimen; Z72.0 Tobacco use
CPT/HCPCS: 36415; 80053; 80307; 85025; G0480; 99284

== ENCOUNTER 2021-06-18 13:59 | Emergency (ER) | payer OTHER ==
[2021-06-18] MEDS ORDERED: Sodium Chloride 0.9% 1000 ML 1,000 ML IV STA (14:44)
[2021-06-18] MEDS ORDERED: HUMULIN R IV ONE (14:51)
[2021-06-18] MEDS ORDERED: HUMULIN R SQ ONE (14:52)
[2021-06-18] MEDS ORDERED: Sodium Chloride 0.9% 1000 ML 1,000 ML ONE (14:56)
[2021-06-18] MEDS ORDERED: HUMULIN R ONE ×2 (14:56→15:02)
[2021-06-18 15:01] LABS: Absolute Neutrophil Ct (ANC) 6.38 (1.4-6.9); BASOPHIL % 0.5 % (0.0-0.4); Basophil (Absolute #) 0.05 (0-0.4); Eosinophil % 2.9 % (0.00-5.0); Eosinophil (Absolute #) 0.31 (0-0.5); Hematocrit 43.5 % (42-50); Hemoglobin 14.8 gm/dl (12.5-18.0); Lymphocyte (Absolute #) 3.12 (1.0-4.6); Lymphocytes % 29.2 % (24.0-44.0); Mean Cell Volume 89.7 fl (78-100); Mean Corpuscular Hemoglobin 30.5 pg (26-32); Mean Platelet Volume 10.4 fl (7.5-11.0); Monocyte (Absolute #) 0.83 (0.0-1.3); Monocytes % 7.8 % (0.0-12.0); Neutrophil % 59.6 % (36.0-66.0); Platelet Count 273 K/mm3 (150-450); Red Blood Count 4.85 M/mm3 (4.1-5.6); Red Cell Distribution Width 12.9 % (11.5-14.0); White Blood Count 10.7 K/mm3 (4.0-10.5)
[2021-06-18 15:10] LABS: ACETAMINOPHEN < 10 ug/ml (10-30); ALBUMIN 4.1 g/dL (3.5-5.0); ALKALINE PHOSPHATASE 104 U/L (38-126); ANION GAP 12.3 MEQ/L (5-15); BLOOD UREA NITROGEN 17 mg/dL (9-20); CHLORIDE 101 mmol/L (98-107); Calcium 8.8 mg/dL (8.4-10.2); Carbon Dioxide 24 mmol/L (22-30); Creatinine 1 0.69 mg/dL (0.66-1.25); EST GLOMERULAR FILTRATION RATE > 60.0 ML/MIN; ETHYL ALCOHOL < 10 mg/dL (0-10); Glucose 292 mg/dL (74-106); Potassium 3.7 mmol/L (3.5-5.1); SALICYLATE < 1.0 mg/dL (2-20); SGOT/AST 31 U/L (17-59); SGPT/ALT 23 U/L (0-50); SODIUM 133 mmol/L (137-145); Total Protein 7.1 g/dL (6.3-8.2)
--- NOTE | 2021-06-18 15:21 | ERPHSYRPT ---
- History of Present Illness Source: patient Exam Limitations: clinical condition Patient Subjective Stated Complaint: Behavioral problems Triage Nursing Assessment: Patient ambulated back to ED and transferred self to bed. Patient A+O X 3. Patient's skin pink, warm and dry. Patient was patient in ER last night for hallucinations and eloped. Patient brought back to ED per family. Patient A+O x3. Patient's states he hasn't ate or slept in 3 days. Patient last used meth 2 days ago. Patient denies suicidal ideation or homicidal ideation. Patient states last night he saw a teenager that looked like a mina ming and monkey and he was huffing something from a cooler. Patient denies pain or discomfort. Physician History: 30 yo wm w cc of seeing people. Pt denies suicidal/homicidal ideation. He is alert and oriented x3. Pt has a h/o substance abuse. Timing/Duration: today Severity of Symptoms-Max: moderate Severity of Symptoms-Current: mild Context related to: other (Substance abuse) Suicidal thoughts: other (No suicidal) Associated Symptoms: hallucinating, No angry, No agitated, No anxiety, No confused, No depressed, No frustrated, No hostile, No impaired concentration, No ingestion, No injury, No insomnia, No paranoid, No suicidal ideation Previous symptoms: same symptoms as today Allergies/Adverse Reactions: No Known Drug Allergies Allergy (Verified 06/18/21 14:07) Home Medications: No Reportable Medications [No Reported Medications] 06/18/21 [History] Hx Tetanus, Diphtheria Vaccination/Date Given: (unknown) Hx Influenza Vaccination/Date Given: No Hx Pneumococcal Vaccination/Date Given: No Immunizations Up to Date: Yes Travel Risk - International Travel Have you traveled outside of the country in past 3 weeks: No - Coronavirus Screening Are you exhibiting any of the following symptoms?: No Close contact with a COVID-19 positive Pt in past 14-21 Days: No - Vaccine Status Have you recieved a Covid-19 vaccination: No - Past Medical History Pertinent Past Medical History: Yes Neurological History: No Pertinent History ENT History: No Pertinent History Cardiac History: Hypertension Respiratory History: No Pertinent History Endocrine Medical History: Diabetes Type II Musculoskeletal History: No Pertinent History GI Medical History: No Pertinent History History: No Pertinent History Psycho-Social History: Anxiety, Depression Male Reproductive Disorders: No Pertinent History Other Medical History: PT. IS NON-COMPLIANT DIABETIC - Past Surgical History Past Surgical History: Yes Neuro Surgical History: No Pertinent History Cardiac: No Pertinent History Respiratory: No Pertinent History Gastrointestinal: No Pertinent History Genitourinary: No Pertinent History Musculoskeletal: Orthopedic Surgery Male Surgical History: No Pertinent History Other Surgical History: hip right - bone slip- pin placed. tubes placed in ears years ago, now out. I&D left groin 03/11/17. bone shaved from bilat great toes 03/31/19 - Social History Smoking Status: Current every day smoker How long have you smoked: 10 yrs Exposure to second hand smoke: Yes Drug Use: marijuana, bath salts, methamphetamines Patient Lives Alone: No Significant Family History: no pertinent family hx - Review of Systems Constitutional: No Symptoms Eyes: No Symptoms Ears, Nose, & Throat: No Symptoms Respiratory: No Symptoms Cardiac: No Symptoms Abdominal/Gastrointestinal: No Symptoms Genitourinary Symptoms: No Symptoms Musculoskeletal: No Symptoms Skin: No Symptoms Neurological: No Symptoms Psychological: No Symptoms, Drug Abuse, No Suicidal Ideations, No Homicidal Ideations Endocrine: No Symptoms Hematologic/Lymphatic: No Symptoms Immunological/Allergic: No Symptoms - Nursing Vital Signs Nursing Vital Signs: Initial Vital Signs Temperature 98.1 F 06/18/21 14:08 Pain Scale Pain Intensity 0 - Physical Exam General Appearance: no apparent distress Eyes, Ears, Nose, Throat Exam: normal ENT inspection, TMs normal, pharynx normal, moist mucous membranes Neck Exam: normal inspection, non-tender, supple, full range of motion, No Br udzinski, No Kernig's, No meningismus, No carotid bruit Respiratory Exam: normal breath sounds, lungs clear, airway intact, No respiratory distress Cardiovascular Exam: regular rate/rhythm, normal heart sounds, normal peripheral pulses, No murmur Gastrointestinal/Abdominal Exam: soft, normal bowel sounds, No tenderness Extremities Exam: normal inspection, normal range of motion, No evidence of inj ury Peripheral Pulses: carotid (R): 2+, carotid (L): 2+ Current Suicidality: denies suicide plan Neurological Exam: alert, normal mood/affect, calm, 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, oriented x 3 Appearance: appropriate appearance Behavior/Eye Contact/Speech: alert & cooperative Thoughts/Hallucinations: visual hallucinations Skin Exam: normal color, warm, dry SpO2 Interpretation: normal SpO2: 97 O2 Delivery: Room Air - Course Nursing assessment & vital signs reviewed: Yes Ordered Tests: Active Orders 24 hr Category Date Time Status POCT Glucose Check STAT Care 06/18/21 16:20 Completed ACETAMINOPHEN Stat Lab 06/18/21 14:45 Completed BMP Stat Lab 06/18/21 17:40 Completed CBC W DIFF Stat Lab 06/18/21 14:45 Completed CMP Stat Lab 06/18/21 14:45 Completed CULTURE,URINE Stat Lab 06/18/21 16:18 Received ETHYL ALCOHOL Stat Lab 06/18/21 14:45 Completed POCT GLUCOSE Stat Lab 06/18/21 14:09 Completed POCT GLUCOSE Stat Lab 06/18/21 16:15 Completed SALICYLATE Stat Lab 06/18/21 14:45 Completed UA W/RFX UR CULTURE Stat Lab 06/18/21 16:18 Completed Urine Triage Profile Stat Lab 06/18/21 16:18 Completed Medication Summary Discontinued Medications Generic Name Dose Route Start Last Admin Trade Name Freq PRN Reason Stop Dose Admin Sodium Chloride 1,000 mls @ 999 mls/hr 06/18/21 14:44 06/18/21 16:27 Sodium Chloride 0.9% 1000 Ml IV 06/18/21 15:44 Infused .Q1H1M STA Infusion Sodium Chloride Confirm 06/18/21 14:56 Sodium Chloride 0.9% 1000 Ml Administered 06/18/21 14:57 Dose 1,000 mls @ ud .ROUTE .STK-MED ONE Ceftriaxone Sodium/Dextrose 1 g in 50 mls @ 100 mls/hr 06/18/21 17:40 06/18/21 18:27 Rocephin 1 Gm-D5w 50 Ml Bag IV 06/18/21 18:09 Infused STAT STA Infusion Ceftriaxone Sodium/Dextrose Confirm 06/18/21 17:41 Rocephin 1 Gm-D5w 50 Ml Bag Administered 06/18/21 17:42 Dose 1 g in 50 mls @ ud IV .STK-MED ONE Insulin Human Regular 5 unit 06/18/21 14:51 06/18/21 15:03 Insulin Regular, Human 1 Unit IV 06/18/21 14:52 5 unit STAT ONE Administration Insulin Human Regular 5 unit 06/18/21 14:52 06/18/21 15:03 Insulin Regular, Human 1 Unit SQ 06/18/21 14:53 5 unit STAT ONE Administration Insulin Human Regular Confirm 06/18/21 14:56 Insulin Regular, Human 1 Unit Administered 06/18/21 14:57 Dose 5 unit .ROUTE .[facility] ONE Insulin Human Regular Confirm 06/18/21 15:02 Insulin Regular, Human 1 Unit Administered 06/18/21 15:03 Dose 5 unit .ROUTE .STK-MED ONE Lab/Rad Data: Laboratory Result Diagrams 06/18/21 14:45 06/18/21 17:40 Laboratory Results 06/18/21 06/18/21 06/18/21 Range/Units Unknown 17:40 16:18 WBC (4.0-10.5) K/mm3 RBC (4.1-5.6) M/mm3 Hgb (12.5-18.0) gm/dl Hct (42-50) % MCV (78-100) fl MCH (26-32) pg MCHC (32-36) g/dl RDW (11.5-14.0) % Plt Count (150-450) K/mm3 MPV (7.5-11.0) fl Gran % (36.0-66.0) % Eos # (Auto) (0-0.5) Absolute Lymphs (auto) (1.0-4.6) Absolute Monos (auto) (0.0-1.3) Lymphocytes % (24.0-44.0) % Monocytes % (0.0-12.0) % Eosinophils % (0.00-5.0) % Basophils % (0.0-0.4) % Absolute Granulocytes (1.4-6.9) Basophils # (0-0.4) Sodium 135 L (137-145) mmol/L Potassium 3.3 L (3.5-5.1) mmol/L Chloride 103 (98-107) mmol/L Carbon Dioxide 27 (22-30) mmol/L Anion Gap 8.7 (5-15) MEQ/L BUN 16 (9-20) mg/dL Creatinine 0.68 (0.66-1.25) mg/dL Estimated GFR > 60.0 ML/MIN Glucose 251 H (74-106) mg/dL POC Glucometer (74 to 106) mg/dL Calcium 8.5 (8.4-10.2) mg/dL Total Bilirubin (0.2-1.3) mg/dL AST (17-59) U/L ALT (0-50) U/L Alkaline Phosphatase (38-126) U/L Serum Total Protein (6.3-8.2) g/dL Albumin (3.5-5.0) g/dL Urine Color (YELLOW) Urine Appearance (CLEAR) Urine pH (5-6) Ur Specific Albia (1.005-1.025) Urine Protein (Negative) Urine Ketones (NEGATIVE) Urine Blood (0-5) Stuart/ul Urine Nitrite (NEGATIVE) Urine Bilirubin (NEGATIVE) Urine Urobilinogen (0-1) mg/dL Ur Leukocyte Esterase (NEGATIVE) Urine WBC (Auto) (0-5) /HPF Urine RBC (Auto) (0-2) /HPF U Epithel Cells (Auto) (FEW) /HPF Urine Bacteria (Auto) (NEGATIVE) /HPF Urine Mucus (Auto) (NEGATIVE) /HPF Urine Culture Reflexed (NO) Urine Glucose (NEGATIVE) mg/dL Salicylates (2-20) mg/dL Urine Opiates Level NEGATIVE (NEGATIVE) Ur Methadone NEGATIVE (NEGATIVE) Acetaminophen (10-30) ug/ml Urine Barbiturates NEGATIVE (NEGATIVE) Ur Phencyclidine (PCP) NEGATIVE (NEGATIVE) Urine Amphetamine POSITIVE (NEGATIVE) U Benzodiazepine Level NEGATIVE (NEGATIVE) Urine Cocaine NEGATIVE (NEGATIVE) Urine Marijuana (THC) POSITIVE (NEGATIVE) Ethyl Alcohol (0-10) mg/dL Chlamydia DNA Probe NOT DETECTED (NEGATIVE) N.gonorrhoeae DNA Probe NOT DETECTED (NEGATIVE) 06/18/21 06/18/21 06/18/21 Range/Units 16:18 16:15 14:45 WBC (4.0-10.5) K/mm3 RBC (4.1-5.6) M/mm3 Hgb (12.5-18.0) gm/dl Hct (42-50) % MCV (78-100) fl MCH (26-32) pg MCHC (32-36) g/dl RDW (11.5-14.0) % Plt Count (150-450) K/mm3 MPV (7.5-11.0) fl Gran % (36.0-66.0) % Eos # (Auto) (0-0.5) Absolute Lymphs (auto) (1.0-4.6) Absolute Monos (auto) (0.0-1.3) Lymphocytes % (24.0-44.0) % Monocytes % (0.0-12.0) % Eosinophils % (0.00-5.0) % Basophils % (0.0-0.4) % Absolute Granulocytes (1.4-6.9) Basophils # (0-0.4) Sodium 133 L (137-145) mmol/L Potassium 3.7 (3.5-5.1) mmol/L Chloride 101 (98-107) mmol/L Carbon Dioxide 24 (22-30) mmol/L Anion Gap 12.3 (5-15) MEQ/L BUN 17 (9-20) mg/dL Creatinine 0.69 (0.66-1.25) mg/dL Estimated GFR > 60.0 ML/MIN Glucose 292 H (74-106) mg/dL POC Glucometer 147 H (74 to 106) mg/dL Calcium 8.8 (8.4-10.2) mg/dL Total Bilirubin 0.50 (0.2-1.3) mg/dL AST 31 (17-59) U/L ALT 23 (0-50) U/L Alkaline Phosphatase 104 (38-126) U/L Serum Total Protein 7.1 (6.3-8.2) g/dL Albumin 4.1 (3.5-5.0) g/dL Urine Color YELLOW (YELLOW) Urine Appearance SLIGHTLY CLOUDY (CLEAR) Urine pH 6.0 (5-6) Ur Specific Albia 1.027 (1.005-1.025) Urine Protein 100 (Negative) Urine Ketones SMALL (NEGATIVE) Urine Blood SMALL (0-5) Stuart/ul Urine Nitrite NEGATIVE (NEGATIVE) Urine Bilirubin NEGATIVE (NEGATIVE) Urine Urobilinogen 4 (0-1) mg/dL Ur Leukocyte Esterase TRACE (NEGATIVE) Urine WBC (Auto) 16-25 (0-5) /HPF Urine RBC (Auto) 6-10 (0-2) /HPF U Epithel Cells (Auto) RARE (FEW) /HPF Urine Bacteria (Auto) RARE (NEGATIVE) /HPF Urine Mucus (Auto) SLIGHT (NEGATIVE) /HPF Urine Culture Reflexed YES (NO) Urine Glucose >=500 (NEGATIVE) mg/dL Salicylates < 1.0 L (2-20) mg/dL Urine Opiates Level (NEGATIVE) Ur Methadone (NEGATIVE) Acetaminophen < 10 L (10-30) ug/ml Urine Barbiturates (NEGATIVE) Ur Phencyclidine (PCP) (NEGATIVE) Urine Amphetamine (NEGATIVE) U Benzodiazepine Level (NEGATIVE) Urine Cocaine (NEGATIVE) Urine Marijuana (THC) (NEGATIVE) Ethyl Alcohol < 10 (0-10) mg/dL Chlamydia DNA Probe (NEGATIVE) N.gonorrhoeae DNA Probe (NEGATIVE) 06/18/21 06/18/21 Range/Units 14:45 14:09 WBC 10.7 H (4.0-10.5) K/mm3 RBC 4.85 (4.1-5.6) M/mm3 Hgb 14.8 (12.5-18.0) gm/dl Hct 43.5 (42-50) % MCV 89.7 (78-100) fl MCH 30.5 (26-32) pg MCHC 34.0 (32-36) g/dl RDW 12.9 (11.5-14.0) % Plt Count 273 (150-450) K/mm3 MPV 10.4 (7.5-11.0) fl Gran % 59.6 (36.0-66.0) % Eos # (Auto) 0.31 (0-0.5) Absolute Lymphs (auto) 3.12 (1.0-4.6) Absolute Monos (auto) 0.83 (0.0-1.3) Lymphocytes % 29.2 (24.0-44.0) % Monocytes % 7.8 (0.0-12.0) % Eosinophils % 2.9 (0.00-5.0) % Basophils % 0.5 (0.0-0.4) % Absolute Granulocytes 6.38 (1.4-6.9) Basophils # 0.05 (0-0.4) Sodium (137-145) mmol/L Potassium (3.5-5.1) mmol/L Chloride (98-107) mmol/L Carbon Dioxide (22-30) mmol/L Anion Gap (5-15) MEQ/L BUN (9-20) mg/dL Creatinine (0.66-1.25) mg/dL Estimated GFR ML/MIN Glucose (74-106) mg/dL POC Glucometer 338 H (74 to 106) mg/dL Calcium (8.4-10.2) mg/dL Total Bilirubin (0.2-1.3) mg/dL AST (17-59) U/L ALT (0-50) U/L Alkaline Phosphatase (38-126) U/L Serum Total Protein (6.3-8.2) g/dL Albumin (3.5-5.0) g/dL Urine Color (YELLOW) Urine Appearance (CLEAR) Urine pH (5-6) Ur Specific Albia (1.005-1.025) Urine Protein (Negative) Urine Ketones (NEGATIVE) Urine Blood (0-5) Stuart/ul Urine Nitrite (NEGATIVE) Urine Bilirubin (NEGATIVE) Urine Urobilinogen (0-1) mg/dL Ur Leukocyte Esterase (NEGATIVE) Urine WBC (Auto) (0-5) /HPF Urine RBC (Auto) (0-2) /HPF U Epithel Cells (Auto) (FEW) /HPF Urine Bacteria (Auto) (NEGATIVE) /HPF Urine Mucus (Auto) (NEGATIVE) /HPF Urine Culture Reflexed (NO) Urine Glucose (NEGATIVE) mg/dL Salicylates (2-20) mg/dL Urine Opiates Level (NEGATIVE) Ur Methadone (NEGATIVE) Acetaminophen (10-30) ug/ml Urine Barbiturates (NEGATIVE) Ur Phencyclidine (PCP) (NEGATIVE) Urine Amphetamine (NEGATIVE) U Benzodiazepine Level (NEGATIVE) Urine Cocaine (NEGATIVE) Urine Marijuana (THC) (NEGATIVE) Ethyl Alcohol (0-10) mg/dL Chlamydia DNA Probe (NEGATIVE) N.gonorrhoeae DNA Probe (NEGATIVE) - Progress Progress Note: 06/18/21 22:08 1gm IV Rocephin for UTI [facility] consult-ok to send home w safety plan Counseled pt/family regarding: lab results, diagnosis, need for follow-up - Departure Departure Disposition: Home Clinical Impression: Drug-induced psychotic disorder with hallucinations, UTI (urinary tract i nfection) Condition: Stable Critical Care Time: No Referrals: GHAZALA LUNA MD [Primary Care Provider] - Follow up/PCP as directed Instructions: Urinary Tract Infection, Adult (DC) Additional Instructions: Follow up with the [facility] and family MD Return to ER as needed
[2021-06-18 16:56] LABS: Appearance SLIGHTLY CLOUDY (CLEAR); Bacteria RARE /HPF (NEGATIVE); Bilirubin NEGATIVE (NEGATIVE); Blood SMALL Ery/ul (0-5); Epithelial Cells RARE /HPF (FEW); Glucose >=500 mg/dL (NEGATIVE); Ketones SMALL (NEGATIVE); Leukocyte Esterase TRACE (NEGATIVE); Mucus SLIGHT /HPF (NEGATIVE); Nitrite NEGATIVE (NEGATIVE); Protein,Urine Dip 100 (Negative); Specific Gravity 1.027 (1.005-1.025); Urobilinogen 4 mg/dL (0-1)
[2021-06-18 17:19] LABS: Barbiturate,Urine NEGATIVE (NEGATIVE); Benzodiazepine,Urine NEGATIVE (NEGATIVE); Cocaine,Urine NEGATIVE (NEGATIVE); Methadone,Urine NEGATIVE (NEGATIVE); Opiate,Urine NEGATIVE (NEGATIVE); PCP,Urine NEGATIVE (NEGATIVE); THC,Urine POSITIVE (NEGATIVE)
[2021-06-18] MEDS ORDERED: ROCEPHIN 1 Gm-D5w 50 ml Bag** 1 G/50 ML IVPB IV STA (17:40)
[2021-06-18] MEDS ORDERED: ROCEPHIN 1 Gm-D5w 50 ml Bag** 1 G/50 ML IVPB IV ONE (17:41)
[2021-06-18 18:01] LABS: ANION GAP 8.7 MEQ/L (5-15); BLOOD UREA NITROGEN 16 mg/dL (9-20); CHLORIDE 103 mmol/L (98-107); Calcium 8.5 mg/dL (8.4-10.2); Carbon Dioxide 27 mmol/L (22-30); Creatinine 1 0.68 mg/dL (0.66-1.25); EST GLOMERULAR FILTRATION RATE > 60.0 ML/MIN; Glucose 251 mg/dL (74-106); Potassium 3.3 mmol/L (3.5-5.1); SODIUM 135 mmol/L (137-145)
[2021-06-18 18:10] LABS: Amphetamine,Urine POSITIVE (NEGATIVE)
[2021-06-18 18:28] LABS: CHLAMYDIA DNA NOT DETECTED (NEGATIVE); GC DNA Probe NOT DETECTED (NEGATIVE)
[2021-06-18 22:13] VITALS: O2SAT 97
[2021-06-18 22:14] VITALS: BP 136/76; PULSE 98
[2021-06-20 08:22] LABS: RPR Non Reactive (Non Reactive)
[2021-06-20 10:09] LABS: HBsAg Screen Negative (Negative); Hep A Ab, IgM Negative (Negative); Hep B Core Ab, IgM Negative (Negative)
[2021-06-20 12:04] LABS: HIV Screen 4th Generation wRfx Non Reactive (Non Reactive); Hep C Virus Ab <0.1 s/co ratio (0.0-0.9)
== END 2021-06-18 22:24 | disposition home or self-care (01) ==
LOC: ED 13:59
DX: R44.1 Visual hallucinations (principal); F15.951 Other stimulant use, unspecified with stimulant-induced psychotic disorder with hallucinations; N39.0 Urinary tract infection, site not specified; I10 Essential (primary) hypertension; E11.8 Type 2 diabetes mellitus with unspecified complications; Z91.19 Patient's noncompliance with other medical treatment and regimen; Z72.0 Tobacco use
CPT/HCPCS: 36000; 36415; 80048; 80053; 80074; 80307; 81001; 82947; 85025; 86592; 87086; 87389; 87491; 87591; 90791; 96360; 96365; 96372; 96374; 99285; G0480; Q3014; J0696; J1815

== ENCOUNTER 2022-06-26 14:06 | Observation (INO) | payer OTHER ==
[2022-06-26] MEDS ORDERED: Lactated Ringers 1,000 ML IV ONE (14:53)
[2022-06-26] MEDS ORDERED: Zofran 4 MG/2 ML VIAL IV PRN (14:55)
[2022-06-26] MEDS ORDERED: TYLENOL 325 MG PO PRN (14:56)
[2022-06-26 15:19] LABS: INFLUENZA B NEGATIVE (NEGATIVE); RESPIRATORY SYNCTIAL VIRUS NEGATIVE (Negative); SARS-CoV-2 Xpert Express NEGATIVE (NEGATIVE)
[2022-06-26 15:20] LABS: Absolute Neutrophil Ct (ANC) 7.94 x10^3/uL (1.4-6.9); Basophil (Absolute #) 0.01 x10^3/uL (0-0.4); Eosinophil % 0.6 % (0.00-5.0); Eosinophil (Absolute #) 0.06 x10^3/uL (0-0.5); Hemoglobin 14.4 g/dL (12.5-18.0); Lymphocyte (Absolute #) 1.74 x10^3/uL (1.0-4.6); Lymphocytes % 16.6 % (24.0-44.0); Mean Corpuscular Hemoglobin 29.8 pg (26-32); Mean Corpuscular Hgb Concent. 33.5 g/dL (32-36); Mean Platelet Volume 9.6 fL (7.5-11.0); Monocyte (Absolute #) 0.67 x10^3/uL (0.0-1.3); Monocytes % 6.4 % (0.0-12.0); Neutrophil % 75.7 % (36.0-66.0); Platelet Count 237 x10^3/uL (150-450); Red Blood Count 4.83 x10^6/uL (4.1-5.6); Red Cell Distribution Width 11.6 % (11.5-14.0); White Blood Count 10.5 x10^3/uL (4.0-10.5)
[2022-06-26 15:22] LABS: INFLUENZA A POSITIVE (NEGATIVE)
[2022-06-26] MEDS: Lactated Ringers 1,000 ML IV SCH (15:24)
[2022-06-26 15:30] LABS: ALKALINE PHOSPHATASE 84 U/L (38-126); BLOOD UREA NITROGEN 17 mg/dL (9-20); CHLORIDE 98 mmol/L (98-107); Calcium 8.4 mg/dL (8.4-10.2); Carbon Dioxide 23 mmol/L (22-30); Creatinine 1 0.98 mg/dL (0.66-1.25); EST GLOMERULAR FILTRATION RATE > 60.0 ML/MIN; Glucose 313 mg/dL (74-106); Potassium 4.1 mmol/L (3.5-5.1); SGOT/AST 20 U/L (17-59); SGPT/ALT 24 U/L (0-50); SODIUM 130 mmol/L (137-145); Total Protein 8.2 g/dL (6.3-8.2)
[2022-06-26] MEDS ORDERED: VENTOLIN COMMON CANISTER IH PRN (16:14)
--- NOTE | 2022-06-26 16:27 | XRAY ---
Indication: Cough. Flu. Comparison: May 01, 2017 PA/lateral chest remains inflated and clear. Heart and mediastinal structures within normal limits. Bony thorax intact. Impression: Nonacute chest.
[2022-06-26] MEDS: HUMALOG SQ PRN (17:15)
[2022-06-27] MEDS: Lactated Ringers 1,000 ML IV SCH ×3 (02:45→20:14)
--- NOTE | 2022-06-27 09:18 | PCM.NOTE ---
Date and Time: 06/27/22915 Subjective Assessment: patient feeling some better, he is coughing up a great deal. still having significant diarrhea Objective Exam General Appearance: no apparent distress Neurologic Exam: alert, oriented x 3 Respiratory Exam: rhonchi, No respiratory distress Cardiovascular Exam: regular rate/rhythm, normal heart sounds Gastrointestinal/Abdomen Exam: soft, No tenderness, No mass OBJECTIVE DATA Vital Signs: Vital Signs - 24 hr Temp Pulse Resp BP Pulse Ox 06/27/22 07:29 97.1 F 79 16 141/76 92 L 06/27/22 04:00 97.7 F 86 20 143/67 93 L 06/26/22 23:48 98.0 F 83 19 122/70 93 L 06/26/22 19:59 98.6 F 81 18 112/57 95 06/26/22 19:16 91 H 18 94 L 06/26/22 16:15 94 H 18 93 L 06/26/22 14:52 98.2 F 94 H 18 135/77 93 L 06/26/22 14:50 98.2 F 94 H 22 135/77 93 L 06/26/22 14:45 98.2 F 94 H 18 135/77 93 L Pain Assessment - Last Documented Pain Intensity 0 Intake and Output: Intake & Output 06/24/22 06/25/22 06/26/22 06/27/22 11:59 11:59 11:59 11:59 Intake Total 3399 Output Total 475 Balance 2924 Weight 102.4 kg Lab Results: Lab Results-Last 24 Hours 06/26/22 06/26/22 06/26/22 Range/Units 14:30 15:11 15:11 WBC 10.5 (4.0-10.5) x10^3/uL RBC 4.83 (4.1-5.6) x10^6/uL Hgb 14.4 (12.5-18.0) g/dL Hct 43.0 (42-50) % MCV 89.0 (78-100) fL MCH 29.8 (26-32) pg MCHC 33.5 (32-36) g/dL RDW 11.6 (11.5-14.0) % Plt Count 237 (150-450) x10^3/uL MPV 9.6 (7.5-11.0) fL Gran % 75.7 H (36.0-66.0) % Immature Gran % (Auto) 0.6 H (0.00-0.4) % Nucleat RBC Rel Count 0.0 (0.00-0.1) % Eos # (Auto) 0.06 (0-0.5) x10^3/uL Immature Gran # (Auto) 0.06 H (0.00-0.03) x10^3u/L Absolute Lymphs (auto) 1.74 (1.0-4.6) x10^3/uL Absolute Monos (auto) 0.67 (0.0-1.3) x10^3/uL Absolute Nucleated RBC 0.00 (0.00-0.01) x10^3u/L Lymphocytes % 16.6 L (24.0-44.0) % Monocytes % 6.4 (0.0-12.0) % Eosinophils % 0.6 (0.00-5.0) % Basophils % 0.1 (0.0-0.4) % Absolute Granulocytes 7.94 H (1.4-6.9) x10^3/uL Basophils # 0.01 (0-0.4) x10^3/uL Sodium 130 L (137-145) mmol/L Potassium 4.1 (3.5-5.1) mmol/L Chloride 98 (98-107) mmol/L Carbon Dioxide 23 (22-30) mmol/L Anion Gap 13.0 (5-15) MEQ/L BUN 17 (9-20) mg/dL Creatinine 0.98 (0.66-1.25) mg/dL Estimated GFR > 60.0 ML/MIN Glucose 313 H (74-106) mg/dL POC Glucometer (74 to 106) mg/dL Hemoglobin A1c (4.5-6.0) % Calcium 8.4 (8.4-10.2) mg/dL Total Bilirubin 0.80 (0.2-1.3) mg/dL AST 20 (17-59) U/L ALT 24 (0-50) U/L Alkaline Phosphatase 84 (38-126) U/L Serum Total Protein 8.2 (6.3-8.2) g/dL Albumin 4.0 (3.5-5.0) g/dL Influenza Type A Ag POSITIVE (NEGATIVE) Influenza Type B Ag NEGATIVE (NEGATIVE) RSV (PCR) NEGATIVE (Negative) SARS-CoV-2 (PCR) NEGATIVE (NEGATIVE) 06/26/22 06/26/22 06/27/22 Range/Units 15:11 21:26 07:05 WBC (4.0-10.5) x10^3/uL RBC (4.1-5.6) x10^6/uL Hgb (12.5-18.0) g/dL Hct (42-50) % MCV (78-100) fL MCH (26-32) pg MCHC (32-36) g/dL RDW (11.5-14.0) % Plt Count (150-450) x10^3/uL MPV (7.5-11.0) fL Gran % (36.0-66.0) % Immature Gran % (Auto) (0.00-0.4) % Nucleat RBC Rel Count (0.00-0.1) % Eos # (Auto) (0-0.5) x10^3/uL Immature Gran # (Auto) (0.00-0.03) x10^3u/L Absolute Lymphs (auto) (1.0-4.6) x10^3/uL Absolute Monos (auto) (0.0-1.3) x10^3/uL Absolute Nucleated RBC (0.00-0.01) x10^3u/L Lymphocytes % (24.0-44.0) % Monocytes % (0.0-12.0) % Eosinophils % (0.00-5.0) % Basophils % (0.0-0.4) % Absolute Granulocytes (1.4-6.9) x10^3/uL Basophils # (0-0.4) x10^3/uL Sodium (137-145) mmol/L Potassium (3.5-5.1) mmol/L Chloride (98-107) mmol/L Carbon Dioxide (22-30) mmol/L Anion Gap (5-15) MEQ/L BUN (9-20) mg/dL Creatinine (0.66-1.25) mg/dL Estimated GFR ML/MIN Glucose (74-106) mg/dL POC Glucometer 187 H 210 H (74 to 106) mg/dL Hemoglobin A1c 11.63 H (4.5-6.0) % Calcium (8.4-10.2) mg/dL Total Bilirubin (0.2-1.3) mg/dL AST (17-59) U/L ALT (0-50) U/L Alkaline Phosphatase (38-126) U/L Serum Total Protein (6.3-8.2) g/dL Albumin (3.5-5.0) g/dL Influenza Type A Ag (NEGATIVE) Influenza Type B Ag (NEGATIVE) RSV (PCR) (Negative) SARS-CoV-2 (PCR) (NEGATIVE) Radiology Exams: Radiology Procedures Category Date Time Status CHEST 2 VIEWS (PA AND LAT) Stat Exams 06/26/22 14:54 Completed Assessment/Plan (1) Influenza A Current Visit: Yes Status: Acute Assessment & Plan: patient has completed a 5 day course of tamiflu, breath sounds are very coarse. chest xray was negative, will repeat now after rehydration to r/o secondary pneumonia Code(s): J10.1 - FLU DUE TO OTH IDENT INFLUENZA VIRUS W OTH RESP MANIFEST (2) Dehydration Current Visit: Yes Status: Acute Code(s): E86.0 - DEHYDRATION (3) Diarrhea Current Visit: Yes Status: Acute Assessment & Plan: c diff ordered but not done Code(s): R19.7 - DIARRHEA, UNSPECIFIED
--- NOTE | 2022-06-27 09:59 | XRAY ---
Indication: Influenza A. Pneumonia. Comparison: One day earlier. Portable chest again demonstrates normal heart and lungs. Bony thorax intact. No new/acute findings.
[2022-06-27] MEDS: HUMALOG SQ PRN ×2 (11:06→22:00)
[2022-06-28 05:14] LABS: Absolute Neutrophil Ct (ANC) 3.16 x10^3/uL (1.4-6.9); Basophil (Absolute #) 0.02 x10^3/uL (0-0.4); Eosinophil % 2.8 % (0.00-5.0); Eosinophil (Absolute #) 0.17 x10^3/uL (0-0.5); Hematocrit 34.1 % (42-50); Hemoglobin 11.6 g/dL (12.5-18.0); Lymphocyte (Absolute #) 2.09 x10^3/uL (1.0-4.6); Lymphocytes % 34.8 % (24.0-44.0); Mean Cell Volume 88.1 fL (78-100); Mean Platelet Volume 10.2 fL (7.5-11.0); Monocyte (Absolute #) 0.53 x10^3/uL (0.0-1.3); Monocytes % 8.8 % (0.0-12.0); Neutrophil % 52.8 % (36.0-66.0); Platelet Count 206 x10^3/uL (150-450); Red Blood Count 3.87 x10^6/uL (4.1-5.6); Red Cell Distribution Width 11.8 % (11.5-14.0)
[2022-06-28 05:48] LABS: ALBUMIN 3.1 g/dL (3.5-5.0); ALKALINE PHOSPHATASE 66 U/L (38-126); ANION GAP 10.7 MEQ/L (5-15); BLOOD UREA NITROGEN 7 mg/dL (9-20); CHLORIDE 104 mmol/L (98-107); Calcium 7.9 mg/dL (8.4-10.2); Carbon Dioxide 25 mmol/L (22-30); Creatinine 1 0.55 mg/dL (0.66-1.25); EST GLOMERULAR FILTRATION RATE > 60.0 ML/MIN; Glucose 166 mg/dL (74-106); Potassium 3.9 mmol/L (3.5-5.1); SGOT/AST 15 U/L (17-59); SGPT/ALT 19 U/L (0-50); SODIUM 136 mmol/L (137-145); Total Protein 6.3 g/dL (6.3-8.2)
[2022-06-28] MEDS: Lactated Ringers 1,000 ML IV SCH (06:14)
[2022-06-28 06:52] VITALS: BP 135/69
[2022-06-28 07:51] VITALS: PULSE 70; O2SAT 97
--- NOTE | 2022-06-28 08:10 | PCM.DS ---
Discharge Summary Date of Admission: 06/26/22 14:07 Admitting Physician: GHAZALA LUNA Primary Care Provider: GHAZALA LUNA Allergies Allergies No Known Drug Allergies Allergy (Verified 06/26/22 15:04) Hospital Summary - Hospital Course Hospital Course: patient admitted with prolonged influenza a, had been admitted to [facility] and completed a course of tamiflu. he had diarrhea and dehydration. diarrhea has resolved, he is tolerating po intake. still has significant cough and sputum production from flu, chest xray neg x 2. he has longstanding noncompliance with type 2 diabetes - Vitals & Intake/Output Vital Signs: Vital Signs Temperature 97.7 F 06/28/22 06:51 Pulse Rate 70 06/28/22 07:49 Respiratory Rate 18 06/28/22 07:49 Blood Pressure 135/69 06/28/22 06:51 O2 Sat by Pulse Oximetry 97 06/28/22 07:49 Intake & Output: Intake & Output 06/25/22 06/26/22 06/27/22 06/28/22 11:59 11:59 11:59 11:59 Intake Total 4119 4625 Output Total 675 Balance 3444 4625 Weight 102.4 kg - Lab Result Diagrams: 06/28/22 04:00 06/28/22 04:58 Lab Results-Last 24 Hrs: Lab Results-Last 24 Hours 06/27/22 06/27/22 06/27/22 Range/Units 10:59 16:10 20:50 WBC (4.0-10.5) x10^3/uL RBC (4.1-5.6) x10^6/uL Hgb (12.5-18.0) g/dL Hct (42-50) % MCV (78-100) fL MCH (26-32) pg MCHC (32-36) g/dL RDW (11.5-14.0) % Plt Count (150-450) x10^3/uL MPV (7.5-11.0) fL Gran % (36.0-66.0) % Immature Gran % (Auto) (0.00-0.4) % Nucleat RBC Rel Count (0.00-0.1) % Eos # (Auto) (0-0.5) x10^3/uL Immature Gran # (Auto) (0.00-0.03) x10^3u/L Absolute Lymphs (auto) (1.0-4.6) x10^3/uL Absolute Monos (auto) (0.0-1.3) x10^3/uL Absolute Nucleated RBC (0.00-0.01) x10^3u/L Lymphocytes % (24.0-44.0) % Monocytes % (0.0-12.0) % Eosinophils % (0.00-5.0) % Basophils % (0.0-0.4) % Absolute Granulocytes (1.4-6.9) x10^3/uL Basophils # (0-0.4) x10^3/uL Sodium (137-145) mmol/L Potassium (3.5-5.1) mmol/L Chloride (98-107) mmol/L Carbon Dioxide (22-30) mmol/L Anion Gap (5-15) MEQ/L BUN (9-20) mg/dL Creatinine (0.66-1.25) mg/dL Estimated GFR ML/MIN Glucose (74-106) mg/dL POC Glucometer 255 H 255 H 253 H (74 to 106) mg/dL Calcium (8.4-10.2) mg/dL Total Bilirubin (0.2-1.3) mg/dL AST (17-59) U/L ALT (0-50) U/L Alkaline Phosphatase (38-126) U/L Serum Total Protein (6.3-8.2) g/dL Albumin (3.5-5.0) g/dL 06/28/22 06/28/22 06/28/22 Range/Units 04:00 04:58 06:43 WBC 6.0 (4.0-10.5) x10^3/uL RBC 3.87 L (4.1-5.6) x10^6/uL Hgb 11.6 L (12.5-18.0) g/dL Hct 34.1 L (42-50) % MCV 88.1 (78-100) fL MCH 30.0 (26-32) pg MCHC 34.0 (32-36) g/dL RDW 11.8 (11.5-14.0) % Plt Count 206 (150-450) x10^3/uL MPV 10.2 (7.5-11.0) fL Gran % 52.8 (36.0-66.0) % Immature Gran % (Auto) 0.5 H (0.00-0.4) % Nucleat RBC Rel Count 0.0 (0.00-0.1) % Eos # (Auto) 0.17 (0-0.5) x10^3/uL Immature Gran # (Auto) 0.03 (0.00-0.03) x10^3u/L Absolute Lymphs (auto) 2.09 (1.0-4.6) x10^3/uL Absolute Monos (auto) 0.53 (0.0-1.3) x10^3/uL Absolute Nucleated RBC 0.00 (0.00-0.01) x10^3u/L Lymphocytes % 34.8 (24.0-44.0) % Monocytes % 8.8 (0.0-12.0) % Eosinophils % 2.8 (0.00-5.0) % Basophils % 0.3 (0.0-0.4) % Absolute Granulocytes 3.16 (1.4-6.9) x10^3/uL Basophils # 0.02 (0-0.4) x10^3/uL Sodium 136 L (137-145) mmol/L Potassium 3.9 (3.5-5.1) mmol/L Chloride 104 (98-107) mmol/L Carbon Dioxide 25 (22-30) mmol/L Anion Gap 10.7 (5-15) MEQ/L BUN 7 L (9-20) mg/dL Creatinine 0.55 L (0.66-1.25) mg/dL Estimated GFR > 60.0 ML/MIN Glucose 166 H (74-106) mg/dL POC Glucometer 168 H (74 to 106) mg/dL Calcium 7.9 L (8.4-10.2) mg/dL Total Bilirubin 0.50 (0.2-1.3) mg/dL AST 15 L (17-59) U/L ALT 19 (0-50) U/L Alkaline Phosphatase 66 (38-126) U/L Serum Total Protein 6.3 (6.3-8.2) g/dL Albumin 3.1 L (3.5-5.0) g/dL 06/28/22 Range/Units 06:43 WBC (4.0-10.5) x10^3/uL RBC (4.1-5.6) x10^6/uL Hgb (12.5-18.0) g/dL Hct (42-50) % MCV (78-100) fL MCH (26-32) pg MCHC (32-36) g/dL RDW (11.5-14.0) % Plt Count (150-450) x10^3/uL MPV (7.5-11.0) fL Gran % (36.0-66.0) % Immature Gran % (Auto) (0.00-0.4) % Nucleat RBC Rel Count (0.00-0.1) % Eos # (Auto) (0-0.5) x10^3/uL Immature Gran # (Auto) (0.00-0.03) x10^3u/L Absolute Lymphs (auto) (1.0-4.6) x10^3/uL Absolute Monos (auto) (0.0-1.3) x10^3/uL Absolute Nucleated RBC (0.00-0.01) x10^3u/L Lymphocytes % (24.0-44.0) % Monocytes % (0.0-12.0) % Eosinophils % (0.00-5.0) % Basophils % (0.0-0.4) % Absolute Granulocytes (1.4-6.9) x10^3/uL Basophils # (0-0.4) x10^3/uL Sodium (137-145) mmol/L Potassium (3.5-5.1) mmol/L Chloride (98-107) mmol/L Carbon Dioxide (22-30) mmol/L Anion Gap (5-15) MEQ/L BUN (9-20) mg/dL Creatinine (0.66-1.25) mg/dL Estimated GFR ML/MIN Glucose (74-106) mg/dL POC Glucometer 168 H (74 to 106) mg/dL Calcium (8.4-10.2) mg/dL Total Bilirubin (0.2-1.3) mg/dL AST (17-59) U/L ALT (0-50) U/L Alkaline Phosphatase (38-126) U/L Serum Total Protein (6.3-8.2) g/dL Albumin (3.5-5.0) g/dL Micro Results-Entire Visit: Microbiology 06/27/22 Unknown Stool Culture Result 1 - Final Stool Not Reportable Stool Culture Result 2 - Final Not Reportable Stool Culture Result 3 - Final Not Reportable Stool Culture Result 4 - Final Not Reportable Stool Culture Organism Suscept - Final Not Reportable Campylobacter Result 1 - Final Not Reportable Campylobacter Result 2 - Final Not Reportable Campylobactor Result 3 - Final Not Reportable Campylobacter Result 4 - Final Not Reportable Campylobactor Susceptibility - Final Not Reportable Accuchecks Date 06/28/22 Date 06/27/22 Date 06/27/22 Date 06/27/22 Time 06:55 Time 21:00 Time 16:14 Time 11:00 - Radiology Exams Ordered Rad Exams-Entire Visit: Radiology Procedures Category Date Time Status CHEST 1 VIEW (PORTABLE) Urgent Exams 06/27/22 09:18 Completed CHEST 2 VIEWS (PA AND LAT) Stat Exams 06/26/22 14:54 Completed - Procedures and Test Procedures and Tests throughout Hospitalization: Therapy Orders & Screens 06/26/22 15:03 Smoking Cessation Education ONCE Comment: Diagnosis: FLU A, DEHYDRATION Smoking Status: Current every day smoker How long have you smoked: 10 yrs Have you smoked in the past 12 months: Yes Approximately how many cigarettes per day: 1-2 PACKS Do you dip or chew tobacco: No 06/27/22 07:00 Respiratory Therapy Assessment DAILY Comment: Diagnosis: FLU A, DEHYDRATION Discharge Exam General Appearance: no apparent distress, obese Neurologic Exam: alert Respiratory Exam: rhonchi, No respiratory distress, No accessory muscle use Cardiovascular Exam: regular rate/rhythm, normal heart sounds Gastrointestinal/Abdomen Exam: soft, No tenderness, No mass Extremity Exam: normal inspection, normal range of motion Skin Exam: normal color, warm, dry Final Diagnosis/Problem List - Final Discharge Diagnosis/Problem (1) Influenza A Current Visit: Yes Status: Acute Code(s): J10.1 - FLU DUE TO OTH IDENT INFLUENZA VIRUS W OTH RESP MANIFEST (2) Dehydration Current Visit: Yes Status: Acute Code(s): E86.0 - DEHYDRATION (3) Diarrhea Current Visit: Yes Status: Acute Code(s): R19.7 - DIARRHEA, UNSPECIFIED - Discharge Disposition: Home, Self-Care Condition: Stable Prescriptions: New Empagliflozin [Jardiance] 10 mg PO DAILY #30 tablet Metformin HCl [Metformin HCl ER] 500 mg PO DAILY #30 tablet Continue Albuterol Common Canister [Ventolin Common Canister] 1 puff IH [id number] PRN PRN Reason: Shortness Of Breath Instructions: Flu, Adult (DC) Follow up with: GHAZALA LUNA MD [Primary Care Provider] -
== END 2022-06-28 11:17 | disposition home or self-care (01) ==
LOC: MED SURG 14:07
PROVIDERS: ADMIT Family Medicine; ATTEND Family Medicine
DX: J10.1 Influenza due to other identified influenza virus with other respiratory manifestations (principal); E86.0 Dehydration; R19.7 Diarrhea, unspecified; E11.9 Type 2 diabetes mellitus without complications; Z20.828 Contact with and (suspected) exposure to other viral communicable diseases
CPT/HCPCS: 0241U; 36415; 71045; 71046; 80053; 82947; 83036; 85025; 94640; 94760; G0378; J1817; A9270-GY